=== PATIENT | female | born 1990 | race Caucasian/White ===

== ENCOUNTER → 2018-01-06 15:00 | Outpatient (CLI) | payer OTHER, SELFPAY | DX: Z23 Encounter for immunization (principal) | CPT/HCPCS: 90471; 90686 ==

== ENCOUNTER → 2018-05-04 18:49 | Outpatient (REF) | payer OTHER, SELFPAY | LOC: LAB 18:49 | PROVIDERS: Visit Provider Physician Assistant | DX: N92.6 Irregular menstruation, unspecified (principal) | CPT/HCPCS: 84702 ==

== ENCOUNTER → 2018-06-12 15:14 | Outpatient (CLI) | payer OTHER, SELFPAY ==
[2018-06-12 15:57] LABS: Add Manual Diff / Slide Review NO; Basophils Absolute Auto 0 /uL (0-100); Basophils Percent Auto 0.4 % (0-2); Eosinophils Absolute Auto 100 /uL (0-450); Eosinophils Percent Auto 0.7 % (2-4); Hematocrit 38.2 % (36-46); Hemoglobin 13.4 g/dL (12.0-16.0); Lymphocytes Absolute Auto 2600 /uL (1100-4500); Lymphocytes Percent Auto 23.8 % (25-40); Mean Corpuscular HGB Conc 35.2 % (30-36); Mean Corpuscular Hemoglobin 31.9 PG (26-34); Mean Corpuscular Volume 90.6 fL (80-100); Monocytes Absolute Auto 700 /uL (0-900); Monocytes Percent Auto 6.2 % (3-14); Neutrophils Absolute Auto 7400 /uL (1500-7000); Neutrophils Percent Auto 68.9 % (50-75); Platelet Count 234 X10^3/uL (150-400); Red Blood Cell Count 4.22 X10^6/uL (4.0-5.2); Red Cell Distribution Width 12.8 % (11.6-14.8); White Blood Cell Count 10.8 X10^3/uL (4.5-11.0)
[2018-06-12 16:08] LABS: Appearance Urine UA CLEAR; Bilirubin Urine UA NEGATIVE (NEGATIVE); Color Urine UA YELLOW; Glucose Urine UA NEGATIVE (Negative); Ketones Urine UA NEGATIVE (NEGATIVE); Leukocyte Esterase Urine UA TRACE (NEGATIVE); Nitrite Urine UA NEGATIVE (Negative); Occult Blood Urine UA NEGATIVE (Negative); Protein Urine UA NEGATIVE (Negative); Specific Gravity Urine UA <=1.005 (1.000-1.035); Urobilinogen Urine UA 0.2 E.U./dL (0.2)
[2018-06-12 16:22] LABS: Bacteria Urine Few (2-10); RBC Urine None Seen (0-5/HPF); WBC Urine None Seen (0-5/HPF)
[2018-06-12 18:07] LABS: Hepatitis B Surface Antigen NEGATIVE s/c (NEGATIVE); Rubella Antibody IgG 53.3 IU/mL (>15)
[2018-06-12 18:36] LABS: HIV 1 and 2 Antibody NEGATIVE (NEGATIVE); Hep C Virus Ab w/Reflex Quant NEGATIVE s/c (NEGATIVE)
[2018-06-15 14:30] LABS: RPR Screen Nonreactive (Nonreactive)
== END ==
PROVIDERS: PCP Obstetrics & Gynecology; Visit Provider Obstetrics & Gynecology
DX: Z34.01 Encounter for supervision of normal first pregnancy, first trimester (principal)
CPT/HCPCS: 36415; 80055; 81003; 81015; 86703; 86787; 86803; 86850; 86900; 86901; 87086

== ENCOUNTER → 2018-07-10 16:23 | Outpatient (CLI) | payer OTHER, SELFPAY ==
[2018-07-10 19:52] LABS: Urine N gonorrhoeae NOT DETECTED
[2018-07-10 20:04] LABS: Urine Chlamydia NOT DETECTED
== END ==
PROVIDERS: PCP Obstetrics & Gynecology; Visit Provider Obstetrics & Gynecology
DX: Z34.01 Encounter for supervision of normal first pregnancy, first trimester (principal); Z3A.13 13 weeks gestation of pregnancy
CPT/HCPCS: 87491; 87591

== ENCOUNTER → 2018-08-07 15:21 | Outpatient (CLI) | payer OTHER, SELFPAY ==
[2018-08-14 12:54] LABS: AFP, Serum 87.5 ng/mL; Calc Gestational Age 18.3; Cigarette Smoker N; Donated Egg NOT GIVEN; Donor Egg Age NOT GIVEN; Inhibin A, Dimeric 187 pg/mL; Maternal Weight 150 lbs; Number of Fetuses 1; Previous Pregnancy Down Syndro NOT GIVEN; hCG, MoM 2.78; hCG, Serum 64.4 IU/mL
== END ==
PROVIDERS: PCP Obstetrics & Gynecology; Visit Provider Obstetrics & Gynecology
DX: Z34.92 Encounter for supervision of normal pregnancy, unspecified, second trimester (principal); Z3A.18 18 weeks gestation of pregnancy
CPT/HCPCS: 36415; 82105; 82677; 84702; 86336

== ENCOUNTER → 2018-09-04 14:54 | Outpatient (CLI) | payer OTHER, SELFPAY ==
--- NOTE | 2018-09-04 14:55 | DI.US.S_ITS ---
PROCEDURE: US OB >= 14 WEEKS FETUS INDICATIONS: anatomic survey OUTSIDE/PRIOR DATING DATA: Last menstrual period (LMP): None. LMP-based estimated date of delivery (ABRAHAN): None. First dating scan (date and location): 06/12/18. Estimated date of delivery (ABRAHAN) from first dating scan: 01/06/19. TECHNIQUE: Real-time scanning was performed of the fetus, with image documentation and biometric measurements. Endovaginal scanning: Not performed COMPARISON: [facility], , OB >= 14 WEEKS FETUS, 08/07/2018, 16:16. FINDINGS: General: A single living intrauterine gestation is present. Presentation: Vertex Placenta: Placental position is posterior, without previa. Amniotic fluid index: 16.1 cm, normal range is 5-24 cm. heart rate: 149 beats per minute. Maternal cervical canal: 4.2 cm long. Normal lower limit is 2.5 cm. 1.2 cm cyst is seen in right ovary. Bilateral ovaries are otherwise within normal limits. biometrics: Biparietal diameter: 5.3 cm, 22 week, 2 days Head circumference: 20.3 cm, 22 weeks, 3 days Abdominal circumference: 17.9 cm, 22 weeks, 5 days Femur length: 3.5 cm, 21 week one day Estimated gestational age from initial scan: 22 weeks 2 days Composite gestational age from present scan: 22 week zero day Estimated weight and percentile: 476 g, 34% Measurement variability for biometric dating: +/- 7 days from 14 weeks to 15 weeks 6 days gestation, +/- 10 days from 16 weeks to 21 weeks 6 days gestation, +/- 2 weeks from 22 weeks to 27 weeks 6 days gestation, +/- 3 weeks for 28 weeks gestation or later. weight reference: 4500 g or EFW >90/95% is considered macrosomia or large for gestational age. EFW <10% is small for gestational age. EFW 5% or less is considered intra-uterine growth restriction. Anatomic survey: Neuro: Ventricles are non-dilated at less than 10 mm. Cisterna magna is normal at 3-11 mm. Cerebellum is normal in size and morphology. Nuchal skin fold: Normal at less than 6 mm between 14-21 weeks gestational age. Face: Nose and lips, facial profile are normal. Spine: No evidence for spina bifida. Heart: 4-chambered heart is present, with normal ventricular outflow tracts. Diaphragm: Diaphragm is intact. Stomach: Left-sided stomach is present. Kidneys: No hydronephrosis. Normal is less than 5 mm in 2nd trimester, less than 7 mm in 3rd trimester. Cord: 3-vessel cord insertion is approximately 1.6 cm from the edge of placenta. Bladder: Normal in size. Extremities: All 4 extremities identified. IMPRESSION: 1. Single live intrauterine with fetus in vertex presentation. heart rate is 149 beats per minute. Normal growth. Normal amount of amniotic fluid. 2. Placental cord insertion is 1.6 cm from the edge of placenta, suggest followup ultrasound. 3. Rest of anatomic survey is within normal limits. Dictated by: Ramana Loaiza M.D. on 09/04/2018 at 16:28 Approved by: Ramana Loaiza M.D. on 09/04/2018 at 16:32
== END ==
PROVIDERS: PCP Obstetrics & Gynecology; Visit Provider Obstetrics & Gynecology
DX: Z34.02 Encounter for supervision of normal first pregnancy, second trimester (principal); Z3A.22 22 weeks gestation of pregnancy
CPT/HCPCS: 76811

== ENCOUNTER → 2018-09-21 09:05 | Outpatient (CLI) | payer OTHER, SELFPAY ==
[2018-09-21 10:57] LABS: Hematocrit 35.1 % (36-46); Hemoglobin 12.5 g/dL (12.0-16.0)
[2018-09-21 11:28] LABS: GTT (PREG) 1 Hour PP 50gm Dose 96 mg/dL (76-139)
== END ==
PROVIDERS: PCP Obstetrics & Gynecology; Visit Provider Obstetrics & Gynecology
DX: Z34.02 Encounter for supervision of normal first pregnancy, second trimester (principal)
CPT/HCPCS: 36415; 82950; 85014; 85018; 86850

== ENCOUNTER → 2018-12-03 14:32 | Outpatient (CLI) | payer OTHER, SELFPAY ==
[2018-12-04 16:27] LABS: Strep Grp B PCR NEG for Grp B Strep
== END ==
PROVIDERS: PCP Family Medicine; Visit Provider Obstetrics & Gynecology
DX: Z34.03 Encounter for supervision of normal first pregnancy, third trimester (principal); Z3A.35 35 weeks gestation of pregnancy
CPT/HCPCS: 87653

== ENCOUNTER → 2018-12-08 09:01 | Outpatient (CLI) | payer OTHER, SELFPAY | PROVIDERS: PCP Family Medicine | DX: Z23 Encounter for immunization (principal) | CPT/HCPCS: 90471; 90686 ==

== ENCOUNTER 2018-12-15 15:19 | Outpatient (CLI) | payer OTHER, SELFPAY | END 2018-12-15 16:50 | disposition home or self-care (01) | LOC: OB 12-17 09:07 | PROVIDERS: PCP Family Medicine; Visit Provider Obstetrics & Gynecology | DX: O47.03 False labor before 37 completed weeks of gestation, third trimester (principal); Z3A.35 35 weeks gestation of pregnancy | CPT/HCPCS: 59025; 59050; G0378; G0379 ==

== ENCOUNTER 2018-12-28 09:39 | Inpatient (IN) | payer OTHER, SELFPAY ==
[2018-12-28 10:21] VITALS: BP 120/62
--- NOTE | 2018-12-28 11:56 | PM.PREOP ---
Pre-operative Note Interval Note History & Physical reviewed/Exam performed by Physician: Yes Changes to H&P: No
[2018-12-28] MEDS: CEFAZOLIN 2 GM/100 ML FROZ.PIGGY IV (12:35)
[2018-12-28 12:44] LABS: Add Manual Diff / Slide Review NO; Basophils Absolute Auto 0 /uL (0-100); Basophils Percent Auto 0.3 % (0-2); Eosinophils Absolute Auto 0 /uL (0-450); Eosinophils Percent Auto 0.3 % (2-4); Lymphocytes Absolute Auto 1500 /uL (1100-4500); Lymphocytes Percent Auto 13.4 % (25-40); Mean Corpuscular Volume 94.3 fL (80-100); Monocytes Absolute Auto 900 /uL (0-900); Monocytes Percent Auto 7.9 % (3-14); Neutrophils Absolute Auto 8400 /uL (1500-7000); Neutrophils Percent Auto 78.1 % (50-75); Platelet Count 150 X10^3/uL (150-400); Red Blood Cell Count 3.92 X10^6/uL (4.0-5.2); Red Cell Distribution Width 13.4 % (11.6-14.8); White Blood Cell Count 10.8 X10^3/uL (4.5-11.0)
[2018-12-28] MEDS: ACETAMINOPHEN IV 1,000 MG/100 ML VIAL 400 MG IV (13:10)
--- NOTE | 2018-12-28 13:21 | SUR.OPER ---
Supine on Padded OR bed, head on pillow, safety belt at thigh, arms secured on padded arm boards at <90 degrees abduction. Bump under right buttock. Legs uncrossed with pillow under knees, gel pad to heels, tape over blanket to lower legs.
--- NOTE | 2018-12-28 13:21 | SUR.OPER ---
Viable female delivered at 1306. Cord blood and placenta sent with L&D nurse.
[2018-12-28 13:47] VITALS: BP 105/60; PULSE 80; RESP 17; TEMP 36.5; O2SAT 98
[2018-12-28 13:52] VITALS: BP 109/59; PULSE 80; RESP 20; O2SAT 97
[2018-12-28 13:58] VITALS: BP 105/64; PULSE 76; RESP 12; O2SAT 97
[2018-12-28 14:08] VITALS: BP 99/57; PULSE 72; RESP 18; TEMP 36.3; O2SAT 97
--- NOTE | 2018-12-28 14:22 | SUR.PHASEI ---
1349 to room 4. bed remains elevated as nurses are caring for the patient. call light within reach. Spouse and baby are in the room. dressing remains CDI; RNs are placing new lauren-pad. No questions.
--- NOTE | 2018-12-28 14:24 | SUR.PHASEI ---
1 liter of IV fluid infused, disconnected prior to transfer.
[2018-12-28] MEDS: LACTATED RINGERS 1,000 ML 100 ML IV (14:30)
[2018-12-28] MEDS: ONDANSETRON 4 MG/2 ML INJ IV (15:34)
[2018-12-28] MEDS: KETOROLAC 30 MG/ML VIAL IV (19:23)
[2018-12-28] MEDS: LANOLIN OINT 7 GM 1 APPLIC TOP (22:46)
[2018-12-29] MEDS: KETOROLAC 30 MG/ML VIAL IV ×2 (01:30→07:19)
[2018-12-29] MEDS: diphenhydrAMINE 25 MG TABLET PO (04:11)
[2018-12-29 06:30] LABS: Hematocrit 29.3 % (36-46); Hemoglobin 10.6 g/dL (12.0-16.0)
[2018-12-29] MEDS: PRENATAL VIT,CALC/IRON/FOLIC 1 TABLET 1 TAB PO (07:19)
[2018-12-29] MEDS: DOCUSATE 250 MG CAPSULE PO (07:20)
--- NOTE | 2018-12-29 10:36 | PM.GYNOP.1 ---
Operative Date/Time/Diagnoses Date of procedure: 12/28/18 Time of procedure: 13:45 Pre-op diagnosis: Persistent breech presentation 39 weeks gestation Post-op diagnosis: same Procedure & Clinicians Procedure: Procedures Operation Date: 12/28/18 11:45 Actual Procedures Side Surgeon p Section Sheri Lutz MD Indications: Persistent breech presentation 39 weeks gestation Surgeon: Sheri Lutz Property Preservation Specialist: Sharon Kamara Anesthesia Type: Spinal Operative Notes Findings: Live female in the complete breech presentation Normal uterus, tubes, and ovaries Closure Type: primary Specimen(s): other (Cord bloods, placenta) Applied: catheter Estimated blood loss (mL): 600 Blood products transfused: none Procedure in detail: The patient was taken to the operating room where she was placed in the seated position. Spinal anesthesia was administered. She was then placed in the dorsal supine position with a leftward tilt. She was prepped and draped in the usual sterile fashion. A timeout was performed. After spinal analgesia was found to be adequate, a Pfannenstiel skin incision was made 2 fingerbreadths above the pubic symphysis and carried through to the underlying layer fascia. The fascia was nicked in the midline, and the incision extended bilaterally with the Martinez scissors. The superior aspect of the fascial incision was grasped with a Loc clamps, elevated, and the underlying rectus muscles dissected off sharply and bluntly. Attention was then turned to the inferior aspect of this incision which in a similar fashion was grasped with a [place] clamps, elevated, and the underlying rectus muscles dissected off sharply and bluntly. The rectus muscles were in the midline. The peritoneum was identified, grasped between 2 hemostats, and entered sharply with the Metzenbaum scissors. This incision was extended superiorly and inferiorly with good visualization of the bladder. The bladder blade was inserted. The vesicouterine peritoneum was identified, grasped with the pickup, and entered sharply with the Metzenbaum scissors. This incision was extended bilaterally, and the bladder flap was created digitally. The bladder blade was reinserted. The lower uterine segment was incised in a transverse fashion with the scalpel. Upon entering the amniotic sac there was a large amount of clear amniotic fluid. The infant was delivered by total breech extraction. The nose and mouth were suctioned with bulb suction. The cord was double clamped and cut. The was handed off to waiting RN and RT. The placenta was delivered manually. The uterus was cleared of all clots and debris. The uterine incision was repaired with #1 chromic in a running interlocking fashion, and a second layer the same suture was used for an imbricating layer. Hemostasis was achieved. The tubes and ovaries were examined and were found to be normal. The gutters were cleared of all clots and debris. The bladder flap was reapproximated using 2-0 Vicryl in a running fashion. The parietal peritoneum was closed using 2-0 Vicryl in a running fashion. The fascia was reapproximated using 0 Vicryl in a running fashion. Subcutaneous layer was copiously irrigated with warm normal saline. Five simple interrupted sutures of 3-0 Vicryl were placed to reapproximate the subcutaneous layer. The skin was closed with 4-0 Biosyn in a subcuticular fashion. Steri-Strips were placed. An Aquacel dressing was placed. The uterus was expressed of a small amount of old blood. Sponge, lap, and instrument counts were correct ?-2. The patient tolerated the procedure well, and was taken to PACU in stable condition. Complications: none Post-operative Condition: stable Disposition: PACU Plan for aftercare: To the Center after recovery
[2018-12-29] MEDS: ACETAMINOPHEN 325 MG TABLET 650 MG PO ×3 (11:38→22:57)
[2018-12-29] MEDS: IBUPROFEN 600 MG TABLET PO ×2 (13:26→19:21)
[2018-12-29 15:00] VITALS: BP 104/60; PULSE 66; RESP 16; TEMP 36.2
[2018-12-29] MEDS: RHO(D) IMMUNE GLOBULIN 1,500 UNIT SYRINGE 1500 UNIT IM (16:05)
[2018-12-30] MEDS: IBUPROFEN 600 MG TABLET PO ×3 (00:55→14:17)
[2018-12-30] MEDS: ACETAMINOPHEN 325 MG TABLET 650 MG PO ×2 (05:12→11:21)
[2018-12-30] MEDS: DOCUSATE 250 MG CAPSULE PO (09:31)
[2018-12-30] MEDS: PRENATAL VIT,CALC/IRON/FOLIC 1 TABLET 1 TAB PO (09:31)
--- NOTE | 2019-01-05 18:15 | PM.OBDS.1 ---
Discharge Providers Provider Date of admission: 12/28/18 09:39 Discharge Date: 12/30/18 Primary care physician: Orion Elizabeth MD Consults: 12/28/18 14:11 Consult to Advanced Registered Nurse Routine Comment: Discharge provider: Sheri Lutz MD Summary Hospital Course Date Patient Seen: 12/30/18 Time Patient Seen: 10:30 Procedures: Primary low-transverse section Spinal analgesia Hospital Course: Patient is a 28-year-old 1 para 1 who presented on December 28, 2018 for a scheduled primary low-transverse section secondary to persistent breech presentation. She underwent this procedure without complication. Her postoperative course was unremarkable and she was discharged home on postop day # 2. She was tolerating a diet, voiding without the catheter, controlling pain with oral medications, and ambulating independently. Peripartum Data Delivery Method: Section Laceration description: None Episiotomy description: None Procedures: Primary low-transverse section Spinal analgesia complications: none Status at Discharge Cognitive/behavioral status at discharge: oriented Functional status at discharge: independent ambulation Overall status at discharge: patient is progressing back to baseline Time Spent with Patient Time attestation: Total time spent providing and/or coordinating discharge services: Time spent: Less than 30 minutes Objective Labs Result Diagrams: 12/29/18 06:10 Exam Vital Signs (past 8 hours): Oxygen Delivery Method Room Air Generally: Patient is sitting up in bed, no acute distress Lungs: Clear to auscultation bilaterally Cardiovascular: Regular rate and rhythm Fundus: Firm at U -2 Incision: Clean dry and intact with Aquacel dressing Extremities: Trace edema, negative Homans Discharge Plan Discharge Plan Patient Disposition: Home Discharge comment: Call with fever, chills, redness or drainage around the incision, or bleeding vaginally more than a pad in an hour Ibuprofen 600-800 mg every 6 hr Discharge Med Rec/Prescriptions Prescriptions: Continued (DME) Double Electric breast Pump and Supplies See Rx Instructions .ROUTE .MEDSUPPLY Qty: 1 RF: 0 prenat.vits,shane,ari-kjww-yesvx tablet 1 tab PO DAILY RF: 0 cholecalciferol (vitamin D3) 3,000 unit tablet 3,000 unit PO DAILY RF: 0 acetaminophen [Tylenol Extra Strength] 500 mg tablet 1,000 mg PO Q6H PRN (Reason: headache) RF: 0 Discontinued dextroamphetamine-amphetamine [Adderall] 5 MG tablet Qty: 0 RF: 0 ondansetron HCl (PF) 4 MG/2 ML solution 4 mg IV Q6HP PRNQty: 20 RF: 0 Follow up/Referrals: Sheri Lutz MD [Physician] - 1 Week (please follow up w/ Dr. Lutz on Friday, @ 3:15pm for aquacell removal.) Provider Discharge Instructions Diet: Regular Skin/Wound/Dressing Care Report to your healthcare provider any signs of infection, such as:: chills, fever, increased pain, unusual drainage and unusual redness Dressing: Do not remove Visit Report/Discharge Packet Instructions: DI for Stand Alone Forms: Discharge: Care Discharge Data Primary Care Provider: Orion Elizabeth Discharges patient from system. Discharge Date/Time: 12/30/18 15:55
== END 2018-12-30 15:55 | disposition home or self-care (01) | DRG 788 ==
PROVIDERS: Admitting Provider Obstetrics & Gynecology; PCP Family Medicine; Visit Provider Obstetrics & Gynecology
PROC: 10D00Z1 Extraction of Products of Conception, Low, Open Approach (ICD-10-PCS; CPT 59514; principal; 2018-12-28 11:45)
DX: O32.1XX0 Maternal care for breech presentation, not applicable or unspecified (principal); Z3A.39 39 weeks gestation of pregnancy; Z37.0 Single live birth
CPT/HCPCS: 36415; 59050; 59510; 59514; 85014; 85018; 85025; 85461; 86850; 86900; 86901; J0131; J0690; J1885; J2274; J2405; J2590; J2790

== ENCOUNTER → 2019-09-28 16:50 | Outpatient (CLI) | payer OTHER, SELFPAY ==
[2019-09-29 08:24] LABS: COVID19 Sendout Not Detected (Not Detect)
== END ==
PROVIDERS: PCP Family Medicine; Visit Provider Physician Assistant
DX: Z03.818 Encounter for observation for suspected exposure to other biological agents ruled out (principal)
CPT/HCPCS: 87635

== ENCOUNTER → 2019-12-17 12:12 | Outpatient (CLI) | payer OTHER, SELFPAY | PROVIDERS: PCP Family Medicine; Referring Provider Internal Medicine; Visit Provider Internal Medicine | DX: Z23 Encounter for immunization (principal) | CPT/HCPCS: 90471; 90686 ==

== ENCOUNTER → 2019-12-30 07:53 | Outpatient (CLI) | payer OTHER, SELFPAY ==
[2019-12-30 09:15] LABS: COVID19 -Nasal RAPID Negative (Negative)
== END ==
PROVIDERS: PCP Family Medicine; Visit Provider Family Medicine
DX: Z11.59 Encounter for screening for other viral diseases (principal)
CPT/HCPCS: 87635

== ENCOUNTER → 2020-05-03 10:29 | Outpatient (CLI) | payer OTHER, SELFPAY ==
[2020-05-03 11:46] LABS: COVID19 -Nasal RAPID Negative (Negative)
== END ==
PROVIDERS: PCP Family Medicine; Visit Provider Student in an Organized Health Care Education/Training Program
DX: Z20.822 Contact with and (suspected) exposure to COVID-19 (principal)
CPT/HCPCS: 87635

== ENCOUNTER → 2020-08-11 12:23 | Outpatient (CLI) | payer OTHER, SELFPAY ==
[2020-08-11 16:05] LABS: Rubella Antibody IgG 41.1 IU/mL (>15)
[2020-08-12 08:14] LABS: Rubeola Measles IgG 18.3 AU/mL (Immune >16.4); Varicella IgG Antibody 681 index (Immune >165)
[2020-08-12 12:42] LABS: Hepatitis B Surf Ab Qualitativ Reactive (.)
[2020-08-15 22:37] LABS: QuantiFERON Mitogen Value >10.00 IU/mL (.); QuantiFERON TB Gold Plus Negative (Negative); QuantiFERON TB2 Ag Value <0.00 IU/mL (.)
== END ==
PROVIDERS: PCP Family Medicine; Referring Provider Student in an Organized Health Care Education/Training Program; Visit Provider Student in an Organized Health Care Education/Training Program
DX: Z02.1 Encounter for pre-employment examination (principal)
CPT/HCPCS: 36415; 86480; 86706; 86735; 86762; 86765; 86787

== ENCOUNTER 2020-09-10 11:44 | Emergency (ER) | payer OTHER, SELFPAY ==
[2020-09-10 12:30] VITALS: BP 130/76; PULSE 89; RESP 16; TEMP 37.2; O2SAT 100; BMI 20.7
[2020-09-10 12:57] LABS: COVID19 -Nasal RAPID Negative (Negative)
--- NOTE | 2020-09-10 13:26 | ED.URI ---
HPI - URI/Sore Throat General Chief Complaint: Upper Respiratory Symptoms Stated Complaint: Sore Throat, Dry Cough, Runny Nose Time Seen by Provider: 09/10/20 13:26 Source: patient Mode of arrival: Ambulatory Limitations: no limitations History of Present Illness HPI Narrative: this is a 30-year-old female comes to the emergency department for runny nose, dry cough sore throat mild generalized headache. Patient has been afebrile. She denies any chest pain shortness of breath. No nausea vomiting. No other GI urinary symptoms. Patient states she is healthy with no medical issues. Patient states that her [id number] child has had similar symptoms. They are also in daycare have another individual's sick as well. Patient came today because she requires negative covid testing for work. Related Data Home Medications Medication Instructions Recorded Confirmed prenat.vits,shane,oqc-nxiy-tmbok 1 tab PO DAILY 06/12/18 12/28/18 Previous Rx's Medication Instructions Recorded Double Electric breast Pump and #1 each 11/30/18 Supplies norethindrone (contraceptive) 0.35 See Rx Instructions .ROUTE 02/02/20 mg tablet .COMPLEX #28 tab Allergies Allergy/AdvReac Type Severity Reaction Status Date / Time No Known Allergies Allergy Uncoded 09/28/19 16:58 Review of Systems Review of Systems ROS Unobtainable: All systems reviewed & are unremarkable except as noted in HPI and below Patient History Medical History ADHD Hemorrhoids Vitiligo Surgical History History of appendectomy S/P primary low transverse [place] teeth removed Family History Father Diabetes mellitus Mother Cancer Sister Healthy adult Grandfather Healthy adult Grandmother Healthy adult Grandfather Diabetes mellitus Hyperlipidemia Heart disease Myocardial infarction Grandmother Alzheimer disease Hypertension Social History marital status: number of children: 1 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 HEENT: Atraumatic, pupils are equal round reactive to light, extraocular movements are intact, nares are clear, Throat is clear except for mild cobblestoning without any exudates, erythema, tonsillar enlargement or uvular deviation HEART: Regular rate and rhythm without murmur, clicks, rubs. LUNGS:Lungs clear to auscultation, no wheezes, rales, crackles, chest moves symmetrically ABD:bowel sounds normal, soft, non-tender, no guarding, rebound, rigidity, no masses noted, no hepatosplenomegaly MSCL: full range of motion, normal gait NEURO:CN 2-12 intact, normal gait. SKIN: no rash Initial Vital Signs Initial Vital Signs: Vital Signs Temperature 98.9 F 09/10/20 12:30 Pulse Rate 89 09/10/20 12:30 Respiratory Rate 16 09/10/20 12:30 Blood Pressure 130/76 09/10/20 12:30 Pulse Oximetry 100 09/10/20 12:30 Course Orders Ordered: ED Orders 09/10/20 12:30 COVID19 -Nasal swab/Pre-Proc Stat Vital Signs Vital signs: Vital Signs - 8 hr 09/10/20 12:30 Temperature 98.9 F Pulse Rate 89 Respiratory Rate 16 Blood Pressure 130/76 Pulse Oximetry 100 MDM - URI/Sore Throat Lab Data Attestation: I reviewed the patient's lab results. Labs: Lab Results 09/10/20 Range/Units 12:30 SARS-CoV-2 (PCR) Negative (Negative) Discharge Plan Departure Patient Disposition: Home Clinical Impression: Upper respiratory infection Instructions: DI for Viral Upper Respiratory Infection -- Adult Activity Restrictions/Additional Instructions: Follow-up with your physician in the next 7-10 days if you are not having any improvement. Your covid test is negative. Please return for persistent fevers the door spine to Tylenol ibuprofen, severe headaches, new chest pain, shortness of breath, passing out, persistent vomiting, muffled voice, difficulty swallowing or other new or concerning symptoms. Prescriptions: No Action (DME) Double Electric breast Pump and Supplies See Rx Instructions .ROUTE .MEDSUPPLY Qty: 1 RF: 0 norethindrone (contraceptive) 0.35 mg tablet See Rx Instructions .ROUTE .COMPLEX Qty: 28 RF: 10 prenat.vits,shane,bxx-klkz-pthni tablet 1 tab PO DAILY RF: 0 Referrals: Sharon Kamara DO [Primary Care Provider] -
== END 2020-09-10 14:32 | disposition home or self-care (01) ==
PROVIDERS: Emergency Provider Emergency Medicine; PCP Family Medicine
DX: J06.9 Acute upper respiratory infection, unspecified (principal); Z20.822 Contact with and (suspected) exposure to COVID-19
CPT/HCPCS: 87635; 99281; 99282; C9803

== ENCOUNTER → 2021-11-08 16:31 | Outpatient (CLI) | payer OTHER, SELFPAY ==
[2021-11-08 17:20] LABS: Appearance Urine UA CLEAR; Bilirubin Urine UA NEGATIVE (NEGATIVE); Color Urine UA YELLOW; Glucose Urine UA NEGATIVE (Negative); Ketones Urine UA NEGATIVE (NEGATIVE); Leukocyte Esterase Urine UA NEGATIVE (NEGATIVE); Nitrite Urine UA NEGATIVE (Negative); Occult Blood Urine UA NEGATIVE (Negative); Protein Urine UA NEGATIVE (Negative); Specific Gravity Urine UA >=1.030 (1.000-1.035); Urobilinogen Urine UA 0.2 E.U./dL (0.2)
[2021-11-08 17:35] LABS: Add Manual Diff / Slide Review NO; Basophils Absolute Auto 100 /uL (0-100); Basophils Percent Auto 0.6 % (0-2); Eosinophils Absolute Auto 100 /uL (0-450); Hematocrit 37.1 % (36-46); Hemoglobin 13.2 g/dL (12.0-16.0); Lymphocytes Absolute Auto 2800 /uL (1100-4500); Lymphocytes Percent Auto 28.8 % (25-40); Mean Corpuscular HGB Conc 35.6 % (30-36); Mean Corpuscular Hemoglobin 31.6 PG (26-34); Mean Corpuscular Volume 88.6 fL (80-100); Monocytes Absolute Auto 700 /uL (0-900); Monocytes Percent Auto 7.2 % (3-14); Neutrophils Absolute Auto 6100 /uL (1500-7000); Neutrophils Percent Auto 62.4 % (50-75); Platelet Count 225 X10^3/uL (150-400); Red Blood Cell Count 4.19 X10^6/uL (4.0-5.2); Red Cell Distribution Width 13.5 % (11.6-14.8); White Blood Cell Count 9.8 X10^3/uL (4.5-11.0)
[2021-11-08 18:29] LABS: Hepatitis B Surface Antigen NEGATIVE s/c (NEGATIVE); Rubella Antibody IgG 35.9 IU/mL (>15)
[2021-11-08 18:44] LABS: HIV 1 & 2 Ab/Ag 4th Gen Combo NEGATIVE (NEGATIVE); Hep C Virus Ab w/Reflex Quant NEGATIVE s/c (NEGATIVE)
[2021-11-09 08:20] LABS: RPR Screen Non Reactive (Non Reactive); Varicella IgG Antibody 643 index (Immune >165)
== END ==
PROVIDERS: PCP Family Medicine; Referring Provider Obstetrics & Gynecology; Visit Provider Obstetrics & Gynecology
DX: Z34.81 Encounter for supervision of other normal pregnancy, first trimester (principal)
CPT/HCPCS: 36415; 80055; 81003; 86787; 86803; 86850; 86870; 86900; 86901; 87086; 87389

== ENCOUNTER → 2021-12-24 13:29 | Outpatient (CLI) | payer OTHER, SELFPAY ==
[2021-12-26 19:49] LABS: AFP Value 50.1 ng/mL (.); Gest Age on Col Date 16.7 weeks (.); Insulin Dep Diabetes No (.); OSBR Risk 1IN 4034 (.); Results Report (.); Test Results *Screen Negative* (.)
== END ==
PROVIDERS: PCP Family Medicine; Referring Provider Physician Assistant Medical; Visit Provider Physician Assistant Medical
DX: Z34.82 Encounter for supervision of other normal pregnancy, second trimester (principal); Z3A.16 16 weeks gestation of pregnancy
CPT/HCPCS: 36415; 82105

== ENCOUNTER → 2022-01-25 14:13 | Outpatient (CLI) | payer OTHER, SELFPAY ==
--- NOTE | 2022-01-25 14:14 | DI.US.S_ITS ---
PROCEDURE: US OB >= 14 WEEKS FETUS INDICATIONS: ANATOMY OUTSIDE/PRIOR DATING DATA: Last menstrual period (LMP): 09/03/2021. LMP-based estimated date of delivery (ABRAHAN): 06/10/2022. First dating scan (date and location): 11/01/2021. Estimated date of delivery (ABRAHAN) from first dating scan: 06/03/2022. The calculations are made using the working ABRAHAN of 06/10/2022. TECHNIQUE: Real-time scanning was performed of the fetus, with image documentation and biometric measurements. COMPARISON: [facility], , OB <= 14 WEEKS FETUS, 11/01/2021, 16:50. [facility], , OB <= 14 WEEKS FETUS, 11/26/2021, 17:10. FINDINGS: General: A single living intrauterine gestation is present. Presentation: Variable. Placenta: Placental position is anterior , without previa. Amniotic fluid index: 20.1 cm, normal range is 5-24 cm. Single deepest vertical pocket is 6.1 cm. heart rate: 141 beats per minute. Maternal cervical canal: 5.7 cm long. Normal lower limit is 2.5 cm. Miscellaneous: Multiple punctate echogenic foci suggestive of the debris are demonstrated within the urinary bladder. biometrics: Biparietal diameter: 5.2 cm, 21 weeks 6 days Head circumference: 19.0 cm, 21 weeks 2 days Abdominal circumference: 18.5 cm, 23 weeks 2 days Femur length: 3.7 cm, 21 weeks 4 days Clinically estimated gestational age: 20 weeks 4 days Composite gestational age from present scan: 22 weeks 0 days Estimated weight and percentile: 501 g, greater than 99th percentile Anatomic survey: Neuro: Ventricles are non-dilated at less than 10 mm. Cisterna magna is normal at 3-11 mm. Cerebellum is normal in size and morphology. Nuchal skin fold: Normal at less than 6 mm between 14-21 weeks gestational age. Face: Nose and lips, facial profile are normal. Spine: No evidence for spina bifida. Along the right aspect of the sacrum and iliac wing, there is a possible subcutaneous fluid collection measuring approximately 2.3 x 1.7 x 0.5 cm. Heart: 4-chambered heart is present, with normal ventricular outflow tracts. Diaphragm: Diaphragm is intact. Stomach: Left-sided stomach is present. Kidneys: No hydronephrosis. Normal is less than 5 mm in 2nd trimester, less than 7 mm in 3rd trimester. Cord: 3-vessel cord has orthotopic insertion. Bladder: Normal in size. Extremities: All 4 extremities identified. IMPRESSION: 1. Single living intrauterine demonstrating interval growth with estimated weight at greater than 99th percentile. The findings are nonspecific and may be constitutional or reflect inaccurate dates but the differential includes macrosomia. Recommend attention on follow-up. 2. Possible subcutaneous fluid collection along the right sacrum and iliac wing, but the differential includes artifact. Recommend attention on follow-up. We strive to produce accurate, complete, and clear reports of imaging services. To assist us in improving patient care, this report was composed using standard report templates and voice recognition software. Therefore, it may contain abnormal punctuation, insertions and/or omissions. Occasional wrong-word or sound-alike substitutions may occur. Though we review the report and make efforts to correct it, we do recommend that the report be read carefully in proper context to recognize any text inaccuracies. Dictated by: Nabil Cervantes M.D. on 01/26/2022 at 1:21 Approved by: Nabil Cervantes M.D. on 01/26/2022 at 1:29
== END ==
PROVIDERS: PCP Family Medicine; Referring Provider Obstetrics & Gynecology; Visit Provider Obstetrics & Gynecology
DX: Z34.82 Encounter for supervision of other normal pregnancy, second trimester (principal); Z3A.22 22 weeks gestation of pregnancy
CPT/HCPCS: 76811

== ENCOUNTER → 2022-02-19 06:42 | Outpatient (CLI) | payer OTHER, SELFPAY ==
--- NOTE | 2022-02-19 06:43 | DI.US.S_ITS ---
PROCEDURE: US OB FOLLOW UP INDICATIONS: SUBCUTANEOUS FLUID RIGHT OF SACRAL SPINE AND GROWTH OUTSIDE/PRIOR DATING DATA: Last menstrual period (LMP): 09/03/2021. LMP-based estimated date of delivery (ABRAHAN): 06/10/2022. First dating scan (date and location): 11/01/2021. Estimated date of delivery (ABRAHAN) from first dating scan: 06/03/2022. The calculations are made using the working ABRAHAN of 06/10/22. TECHNIQUE: Real-time scanning was performed of the fetus, with image documentation and biometric measurements. Endovaginal scanning: Not performed COMPARISON: [facility], , OB >= 14 WEEKS FETUS, 01/25/2022, 14:19. [facility], , OB <= 14 WEEKS FETUS, 11/26/2021, 17:10. [facility], , OB <= 14 WEEKS FETUS, 11/01/2021, 16:50. FINDINGS: General: A single living intrauterine gestation is present. Presentation: There pole. Placenta: Placental position is anterior , without previa. Amniotic fluid index: 24.5 cm, normal range is 5-24 cm. Single deepest vertical pocket is 6.8 cm. heart rate: 152 beats per minute. Maternal cervical canal: 3.2 cm long. Normal lower limit is 2.5 cm. biometrics: Biparietal diameter: 25 weeks 5 days Head circumference: 25 weeks 3 days Abdominal circumference: 26 weeks 2 days Femur length: 25 weeks 4 days Clinically estimated gestational age: 24 weeks 1 day Composite gestational age from present scan: 25 weeks 5 days Estimated weight and percentile: 864 g; 98%. Other: Visualization of the sacral area is limited due to lie. IMPRESSION: 1. A single living intrauterine gestation redemonstrated. 2. weight is at the 98th percentile, concerning for macrosomia. 3. Mildly elevated EZEQUIEL at 24.5 cm (normal 5-24 cm). 4. Visualization of sacral area is limited due to lie. We strive to produce accurate, complete, and clear reports of imaging services. To assist us in improving patient care, this report was composed using standard report templates and voice recognition software. Therefore, it may contain abnormal punctuation, insertions and/or omissions. Occasional wrong-word or sound-alike substitutions may occur. Though we review the report and make efforts to correct it, we do recommend that the report be read carefully in proper context to recognize any text inaccuracies. Dictated by: Brenda Wade M.D. on 02/19/2022 at 10:35 Approved by: Brenda Wade M.D. on 02/19/2022 at 10:59
[2022-02-19 09:53] LABS: Hematocrit 35.2 % (36-46); Hemoglobin 12.4 g/dL (12.0-16.0)
[2022-02-19 10:14] LABS: GTT (PREG) 1 Hour PP 50gm Dose 99 mg/dL (76-139)
== END ==
PROVIDERS: PCP Family Medicine; Referring Provider Obstetrics & Gynecology; Visit Provider Obstetrics & Gynecology
DX: Z36.2 Encounter for other antenatal screening follow-up (principal); O26.892 Other specified pregnancy related conditions, second trimester; Z67.91 Unspecified blood type, Rh negative; Z3A.25 25 weeks gestation of pregnancy
CPT/HCPCS: 36415; 76816; 82950; 85014; 85018; 86850

== ENCOUNTER 2022-05-13 06:27 | Outpatient (CLI) | payer OTHER, SELFPAY | END 2022-05-13 08:30 | disposition home or self-care (01) | LOC: OB 05-15 06:58 | PROVIDERS: PCP Family Medicine; Referring Provider Obstetrics & Gynecology; Visit Provider Obstetrics & Gynecology | DX: O60.03 Preterm labor without delivery, third trimester (principal); Z3A.36 36 weeks gestation of pregnancy | CPT/HCPCS: 59025; 59050; G0378; G0379 ==

== ENCOUNTER → 2022-05-15 15:42 | Outpatient (CLI) | payer OTHER, SELFPAY ==
[2022-05-16 16:08] LABS: Strep Grp B PCR NEG for Grp B Strep
== END ==
PROVIDERS: PCP Family Medicine; Visit Provider Obstetrics & Gynecology
DX: Z34.83 Encounter for supervision of other normal pregnancy, third trimester (principal); Z3A.36 36 weeks gestation of pregnancy
CPT/HCPCS: 87653

== ENCOUNTER 2022-05-23 19:38 | Outpatient (CLI) | payer OTHER, SELFPAY ==
--- NOTE | 2022-05-23 19:51 | PM.OBTRLD ---
Visit Information Visit Information Date of evaluation: 05/23/22 Primary OB Provider: Sheri Lutz On-call OB Provider: Lashawn Mcmahon Reason for Evaluation: Yes non-stress test Comments/Additional reasons for admission: Sosa has been vomiting x 6 hours and can't keep food of fluid in her system.Her daughter had a stomach virus last week, and she thinks that's what she has. Denies painful contractions but having Alcorn-Syed contractions continuously. Took 4 mg ondansetron ODT approx 1730. Denies diarrhea today but had yesterday and the day before. Not interested in caring for herself and staying home at this time; wants IV hydration. Her is out of town for the weekend and she does not want to go into labor before he gets home. Her repeat is scheduled for 05/27/22. Vital Signs Vital Signs: Temp: 37.1 BP 111/66 HR: 108 bpm RR: 18 bpm [facility] Medical History ADHD Hemorrhoids Pre-employment health screening examination Vitiligo Surgical History History of appendectomy S/P primary low transverse [place] teeth removed Family History Father Diabetes mellitus Mother Cancer Sister Healthy adult Grandfather Hx of CABG Grandmother Hypertension Grandfather Diabetes mellitus Hyperlipidemia Heart disease Myocardial infarction Grandmother Alzheimer disease Hypertension Social History marital status: number of children: 1 household members: spouse and children lives independently: Yes housing: house pets and animals: Yes (1 dog, aware of toxo) education level: master's degree 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[employer]) current occupational exposures/hazards: Yes (infection risk) special kishore needs: No travel history: recent (domestic only) seatbelt use: always water heater temp set < 120 deg: Yes working smoke detector in home: Yes fire extinguisher in home: Yes carbon monox detector in home: Yes firearms in home: Yes firearms unloaded and locked: Yes do you feel safe at home: Yes Smoking Status: Never smoker second hand exposure: No alcohol intake: former (Rare, not while ) substance use type: does not use during the past year weight has: remained stable well-balanced diet: daily or most days daily servings fruits/ve-4 caffeine: No Type(s) of exercise: bicycling (stationary bike) frequency: 1-2 times per week Review of Systems Review of Systems Narrative: ROS negative except as mentioned in HPI. Exam Vital Signs (past 8 hours): see above Const General: healthy appearing, comfortable, well developed and well groomed Nutritional Appearance: well nourished, thin and other Orientation: oriented x3 Other: term Resp Effort & Inspection: normal respiratory effort and able to speak in complete sentences Other: Uterus soft to palpation Skin General: no rashes or lesions noted Neuro General: gait normal and moves all extremities Cognition: normal cognition Speech: speech normal Gait: normal gait Motor: muscle tone normal throughout Extrem General: normal to inspection and full ROM Psych Mental Status: mental status grossly normal Evaluation Evaluation Baseline heart rate: 135 Variability: Moderate (11-25) monitor accelerations: Present Monitor Decelerations: Absent Uterine Contraction Intensity: Mild Category of Tracing: Reactive Diagnosis, Plan/Disposition Final Diagnosis (1) Previous section complicating : Status: Acute Problem details: RCS scheduled for 05/27/22 (2) Encounter for supervision of low-risk in third trimester: Status: Acute (3) Acute dehydration: Status: Acute Problem details: IV hydration (4) Vomiting affecting : Status: Acute Problem details: Zofran Plan/Disposition Plan: Triage visit for IV hydration secondary to vomiting Zofran given IV NST Discharge home
[2022-05-23] MEDS: LACTATED RINGERS 1,000 ML 1000 ML IV (20:00)
[2022-05-23] MEDS: ONDANSETRON 8 MG in SODIUM CHLORIDE 0.9% 50 ML 216 MG IV (20:19)
== END 2022-05-23 21:25 | disposition home or self-care (01) ==
LOC: OB 05-27 08:22
PROVIDERS: PCP Family Medicine; Referring Provider Obstetrics & Gynecology; Visit Provider Obstetrics & Gynecology
DX: O21.9 Vomiting of pregnancy, unspecified (principal); O26.893 Other specified pregnancy related conditions, third trimester; E86.0 Dehydration; O34.219 Maternal care for unspecified type scar from previous cesarean delivery; Z3A.38 38 weeks gestation of pregnancy
CPT/HCPCS: 59025; 96360; G0378; G0379; J2405

== ENCOUNTER 2022-05-28 06:27 | Inpatient (IN) | payer OTHER, SELFPAY ==
[2022-05-28] MEDS: LACTATED RINGERS 1,000 ML 42 ML IV ×3 (07:00→09:36)
[2022-05-28 07:03] VITALS: BP 114/66
[2022-05-28 07:56] LABS: Add Manual Diff / Slide Review NO; Basophils Absolute Auto 0 /uL (0-100); Basophils Percent Auto 0.3 % (0-2); Eosinophils Absolute Auto 0 /uL (0-450); Eosinophils Percent Auto 0.6 % (2-4); Hematocrit 36.4 % (36-46); Hemoglobin 12.9 g/dL (12.0-16.0); Lymphocytes Absolute Auto 1700 /uL (1100-4500); Lymphocytes Percent Auto 20.9 % (25-40); Mean Corpuscular HGB Conc 35.5 % (30-36); Mean Corpuscular Hemoglobin 33.5 PG (26-34); Mean Corpuscular Volume 94.4 fL (80-100); Monocytes Absolute Auto 800 /uL (0-900); Monocytes Percent Auto 9.2 % (3-14); Neutrophils Absolute Auto 5700 /uL (1500-7000); Platelet Count 136 X10^3/uL (150-400); Red Blood Cell Count 3.85 X10^6/uL (4.0-5.2); Red Cell Distribution Width 13.8 % (11.6-14.8); White Blood Cell Count 8.3 X10^3/uL (4.5-11.0)
[2022-05-28] MEDS: ACETAMINOPHEN 325 MG TABLET 975 MG PO (08:08)
[2022-05-28] MEDS: CITRIC ACID/SODIUM CITRATE 15 ML SOLUTION 30 ML PO (08:08)
--- NOTE | 2022-05-28 08:17 | PM.PREOP ---
Pre-operative Note COVID-19 COVID-19 status: Not tested Criteria for continued procedure: Deterioration of the patient's condition or overall health Interval Note History & Physical reviewed/Exam performed by Physician: Yes Changes to H&P: No
--- NOTE | 2022-05-28 08:17 | PM.OBHP.1 ---
OB HPI Date/Time Date of admission: 05/28/22 Date Patient Seen: 05/28/22 Time Patient Seen: 08:17 History of Present Condition Chief complaint: Section : 2 Para: 1 Estimated Date of Delivery: 06/03/22 Estimated Gestational Age (weeks): 39 Narrative: Sheila Paz is a 31 year old female admitted for repeat Indications Operative indications ( section): previous uterine surgery History of Present care: good care Dating criteria: LMP confirmed by 1st trimester US Ultrasounds: normal mid trimester US Obstetrical complications: none Medical complications: none Preadmission Labs Blood type: A (-) negative -: Antibody screen: negative, GBS status: positive, HBsAG: negative, HIV: negative and RPR/VDLR: negative -: Chlamydia screen: not detected and Gonorrhea screen: not detected -: Rubella: immune and Varicella: immune HCAB: negative Cell-free DNA: Normal 1 hr GTT: 99 Evaluation Evaluation Baseline heart rate: 120 Variability: Moderate (11-25) monitor accelerations: Present Monitor Decelerations: Absent Category of Tracing: Reactive Status: Category l PFSH Medical History ADHD Hemorrhoids Pre-employment health screening examination Vitiligo Surgical History History of appendectomy S/P primary low transverse [place] teeth removed Family History Father Diabetes mellitus Mother Cancer Sister Healthy adult Grandfather Hx of CABG Grandmother Hypertension Grandfather Diabetes mellitus Hyperlipidemia Heart disease Myocardial infarction Grandmother Alzheimer disease Hypertension Social History marital status: number of children: 1 household members: spouse and children lives independently: Yes housing: house pets and animals: Yes (1 dog, aware of toxo) education level: master's degree 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 occupational exposures/hazards: Yes (infection risk) special kishore needs: No travel history: recent (domestic only) seatbelt use: always water heater temp set < 120 deg: Yes working smoke detector in home: Yes fire extinguisher in home: Yes carbon monox detector in home: Yes firearms in home: Yes firearms unloaded and locked: Yes do you feel safe at home: Yes Smoking Status: Never smoker second hand exposure: No alcohol intake: former (Rare, not while ) substance use type: does not use during the past year weight has: remained stable well-balanced diet: daily or most days daily servings fruits/ve-4 caffeine: No Type(s) of exercise: bicycling (stationary bike) frequency: 1-2 times per week Meds Home Medications and Allergies Home Medications Medication Instructions Recorded Confirmed Type prenat.vits,shane,toy-grlt-nyglg 1 tab PO DAILY 06/12/18 05/28/22 History Double Electric breast Pump and #1 ea 11/30/18 05/28/22 Rx Supplies doxylamine succinate 25 mg tablet 25 mg PO BEDTIME PRN Insomnia 10/08/21 05/28/22 History famotidine 20 mg tablet 20 mg BID 05/28/22 05/28/22 History magnesium glycinate 100 mg tablet 300 mg PO DAILY 05/28/22 05/28/22 History ondansetron 4 mg disintegrating 4 mg Q6HR 05/28/22 05/28/22 History tablet Allergies Allergy/AdvReac Type Severity Reaction Status Date / Time No Known Drug Allergies Allergy Verified 05/28/22 07:25 Review of Systems Review of Systems Narrative: No headaches, scotomata, epigastric pain. Good movement. No leakage of fluid. No fevers. OB Exam Vital signs Blood Pressure: 114/66 Pulse Rate: 76 Narrative Exam Narrative: HEENT exam within normal limits. Lungs are clear to auscultation percussion. Heart is regular rate and rhythm no S3-S4 murmurs. Abdomen is soft, nontender. Abdomen is gravid. Fetus is vertex. Extremities without edema and nontender. Objective Labs 05/28/22 07:21 Labs: Laboratory Results - last 24 hr 05/28/22 07:21 WBC 8.3 RBC 3.85 L Hgb 12.9 Hct 36.4 MCV 94.4 MCH 33.5 MCHC 35.5 RDW 13.8 Plt Count 136 L Neut % (Auto) 69.0 Lymph % (Auto) 20.9 L [place] % (Auto) 9.2 Eos % (Auto) 0.6 L Baso % (Auto) 0.3 Neut # (Auto) 5700 Lymph # (Auto) 1700 [place] # (Auto) 800 Eos # (Auto) 0 Baso # (Auto) 0 Assessment and Plan Assessment and Plan Assessment and Plan narrative: 39 week gestation with prior section for repeat low-transverse section
[2022-05-28 08:30] VITALS: BP 114/66; PULSE 76
[2022-05-28] MEDS: CEFAZOLIN 2 GM/100 ML PREMIX 100 ML IV (09:23)
--- NOTE | 2022-05-28 09:29 | SUR.OPER ---
Supine on Padded OR bed, head on pillow, safety belt at thigh, arms secured on padded arm boards at <90 degrees abduction. Bump under right buttock. Legs uncrossed with pillow under knees, gel pad to heels, tape over blanket to lower legs. Pt positioned per direction and supervision of Dr Sanders.
--- NOTE | 2022-05-28 09:40 | SUR.OPER ---
Viable baby boy delivered at 0939. Cord blood x2 and placenta given to OB RN.
[2022-05-28] MEDS: TRIAMCINOLONE 40 MG/ML VIAL IM (09:59)
[2022-05-28 10:25] VITALS: BP 109/62; PULSE 78; RESP 16; TEMP 37.1; O2SAT 100
--- NOTE | 2022-05-28 10:27 | PM.OBCS.1 ---
Operative Date/Time/Diagnoses Date of procedure: 05/28/22 Time of procedure: 10:28 Pre-op diagnosis: 39 week gestation with prior section Post-op diagnosis: same Procedure & Clinicians Procedure: Repeat low-transverse section Same procedure as scheduled: Yes Indications: 39 week gestation with prior section Surgeon: Vicenta Sanders Bar Turner: Jo Ann Clifton Anesthesia Type: Spinal Operative Notes Findings: Normal tubes, ovaries, uterus. Viable male infant with Apgars of 9 and 9 weighing 7 lb 10 oz. Closure Type: primary Specimen(s): cord blood Intraoperative meds administered: Duramorph, Ketorolac and Pitocin Applied: Catheter (Beltran) Estimated Blood Loss (mL): 600 Blood products transfused: none Procedure in detail: The patient was brought to the operating room where she underwent a spinal for anesthesia. She was placed in a supine position with a left lateral tilt. A Beltran catheter was placed. Pulsatile stockings were placed and functional throughout the case. 2 g of Ancef were given IV prior to the incision. Warming was in place. The patient was prepped and draped in usual sterile fashion. A low transverse incision was made with a scalpel removing the prior incision, and the incision was carried down to the fascial layer which was incised transversely with scissors. The furniture removalist's assistant did her side of the incision. The midline attachments are superiorly and inferiorly. Some bleeding was controlled Bovie. The rectus muscles were in the midline and the peritoneal incision was made with no damage to internal structures. The peritoneum was incised and superiorly and inferiorly. The incision was stretched with the surgeon and furniture removalist's assistant placing traction. Bladder blade was placed and a bladder flap was developed and the bladder held away from the lower uterine segment. An incision was made in the uterus with the scalpel and the incision was extended with stretching. The head was elevated out of the abdomen and with fundal pressure by the furniture removalist's assistant the baby was delivered. The was bulb suctioned for clear fluid and handed off to the warmer. Cord blood was collected. The placenta delivered spontaneously with traction. The uterus was cleaned with clean laps. The uterine incision was closed in 2 layers of 0 chromic suture the first a running locking layer the second an imbricating layer. The furniture removalist's assistant was helping to expose the incision. The bladder peritoneum was repaired with 2-0 Vicryl suture. The gutters were cleaned of any remaining fluids and ovaries and tubes were observed to be normal. Adequate hemostasis was noted. The perineum was closed with 2-0 Vicryl suture. The fascia layer was closed with 0 Vicryl suture with 2 stitches. The furniture removalist's assistant repairing half the incision with helping to retract and expose the incision for the other half. The incision was irrigated and adequate hemostasis noted. The incision was closed with interrupted 3-0 Vicryl sutures and then a subcuticular stitch of 4-0 Vicryl suture. Steri-Strips were placed. 40 mg of Kenalog in 10 cc of saline were injected in the subcuticular area of the incision to prevent keloid formation. The uterus was massaged to remove any clots. The patient went to recovery room in good condition. Counts of instruments and sponges were correct. Dr. Clifton was present throughout the case to assist with retraction, fundal pressure to deliver the infant, and suturing half the fascia. Complications: none [place] Baby 1: Gender: Male Presentation: vertex Position: Right Occiput Anterior Placental Delivery Description: Expressed Cord Vessel Description: 3 Vessels score (1 min): 9 score (5 min): 9 weight: 7 lb 10 oz Post-operative Condition: stable Disposition: other ( Center) Aftercare: routine postop
[2022-05-28 10:30] VITALS: BP 109/64; PULSE 74; RESP 16; O2SAT 100
[2022-05-28 10:35] VITALS: BP 100/63; PULSE 69; RESP 15; TEMP 36.9; O2SAT 100
[2022-05-28 10:45] VITALS: BP 109/64; PULSE 74; RESP 16; O2SAT 100
[2022-05-28] MEDS: ONDANSETRON 4 MG/2 ML INJ IV (12:08)
[2022-05-28] MEDS: diphenhydrAMINE 50 MG/ML VIAL 25 MG IV (12:33)
[2022-05-28] MEDS: KETOROLAC 30 MG/ML VIAL IV ×2 (15:58→22:15)
[2022-05-28] MEDS: ACETAMINOPHEN 325 MG TABLET 650 MG PO ×2 (15:59→22:16)
[2022-05-28] MEDS: LANOLIN OINT 7 GM 1 APPLIC TOP (18:42)
[2022-05-28] MEDS: FAMOTIDINE 20 MG TABLET PO (22:19)
[2022-05-28] MEDS: polyethylene glycoL 3350 17 GM POWD.PACK PO (22:22)
[2022-05-29 04:20] VITALS: TEMP 37
[2022-05-29] MEDS: KETOROLAC 30 MG/ML VIAL IV (04:20)
[2022-05-29] MEDS: ACETAMINOPHEN 325 MG TABLET 650 MG PO ×2 (04:24→10:27)
[2022-05-29 06:31] LABS: Add Manual Diff / Slide Review NO; Basophils Absolute Auto 0 /uL (0-100); Basophils Percent Auto 0.4 % (0-2); Eosinophils Absolute Auto 100 /uL (0-450); Eosinophils Percent Auto 0.8 % (2-4); Hematocrit 32.9 % (36-46); Hemoglobin 11.9 g/dL (12.0-16.0); Lymphocytes Absolute Auto 1900 /uL (1100-4500); Mean Corpuscular Hemoglobin 34.1 PG (26-34); Mean Corpuscular Volume 94.6 fL (80-100); Monocytes Absolute Auto 800 /uL (0-900); Monocytes Percent Auto 7.1 % (3-14); Neutrophils Absolute Auto 8400 /uL (1500-7000); Neutrophils Percent Auto 74.7 % (50-75); Platelet Count 127 X10^3/uL (150-400); Red Blood Cell Count 3.48 X10^6/uL (4.0-5.2); Red Cell Distribution Width 13.7 % (11.6-14.8); White Blood Cell Count 11.2 X10^3/uL (4.5-11.0)
--- NOTE | 2022-05-29 08:41 | PM.OBDS.1 ---
Discharge Providers Provider Date of admission: 05/28/22 06:27 Discharge Date: 05/29/22 Primary care physician: Sharon Kamara DO Consults: 05/28/22 10:49 Consult to Lead Application Architect Routine Comment: Discharge provider: Vicenta Sanders MD Summary Hospital Course Date Patient Seen: 05/29/22 Time Patient Seen: 08:42 Diagnoses: Repeat section Hospital Course: Patient arrived on Labor and delivery for repeat section at term. She delivered a viable male infant weighing 7 lb 10 oz. both baby and patient are doing well . She is having some issues with with nipple bleeding. She is ambulatory. Her pain is under control. She is passing gas. She is urinating without difficulty. Peripartum Data Delivery Method: Section Procedures: Repeat low-transverse section complications: none [place] 1: Gender: Male Disposition of : home Discharge Diagnosis (1) Status post repeat low transverse section: Status: Acute Status at Discharge Cognitive/behavioral status at discharge: oriented Functional status at discharge: independent ambulation Overall status at discharge: patient is progressing back to baseline Time Spent with Patient Time attestation: Total time spent providing and/or coordinating discharge services: Objective Labs 05/29/22 06:00 Labs: Laboratory Results - last 24 hr 05/29/22 05/29/22 06:00 06:00 WBC 11.2 H RBC 3.48 L Hgb 11.9 L Hct 32.9 L MCV 94.6 MCH 34.1 H MCHC 36.0 RDW 13.7 Plt Count 127 L Neut % (Auto) 74.7 Lymph % (Auto) 17.0 L [place] % (Auto) 7.1 Eos % (Auto) 0.8 L Baso % (Auto) 0.4 Neut # (Auto) 8400 H Lymph # (Auto) 1900 [place] # (Auto) 800 Eos # (Auto) 100 Baso # (Auto) 0 Maternal Bleed Negative Exam Vital Signs (past 8 hours): - 05/29/22 04:20 Temperature 98.6 F Oxygen Delivery Method Room Air Blood pressure 116/64, pulse 77 Narrative Exam Narrative: HEENT exam within normal limits. Abdomen is soft nontender. Uterus is firm, at U-1, nontender. Dressing is clean, dry, intact. Mild lochia. Extremities with trace edema and nontender. Discharge Plan Discharge Plan Patient Disposition: Home Discharge orders & Medications Prescriptions: New ibuprofen 800 mg tablet 800 mg PO Q6H PRN (Reason: pain) Qty: 30 0RF Continued prenat.vits,shane,huo-gryi-ojtdk tablet 1 tab PO DAILY doxylamine succinate 25 mg tablet 25 mg PO BEDTIME PRN (Reason: Insomnia) magnesium glycinate 100 mg Tablet 300 mg PO DAILY famotidine 20 mg Tablet 20 mg BID Discontinued ondansetron 4 mg tablet,disintegrating 4 mg Q6HR Patient Comments: DISSOLVE 1 TABLET ON THE TONGUE EVERY 6 TO 8 HOURS No Action (DME) Double Electric breast Pump and Supplies See Rx Instructions .ROUTE .MEDSUPPLY Qty: 1 0RF Rx Instructions: As directed for 99 months. Follow up/Referrals: Sharon Kamara DO [Primary Care Provider] - Vicenta Sanders MD [Physician] - 1 Week Diet/Activity/Treatments Diet: Regular Activity: Nothing in vagina for 6 weeks Skin/Wound/Dressing Care Report to your healthcare provider any signs of infection, such as:: chills, fever and increased pain Dressing: Leave dressing in place. It will be removed at one-week exam Discharge Data Primary Care Provider: Sharon Kamara
[2022-05-29] MEDS: IBUPROFEN 600 MG TABLET PO (10:28)
[2022-05-29] MEDS: DOCUSATE 100 MG CAPSULE PO (10:28)
[2022-05-29] MEDS: RHO(D) IMMUNE GLOBULIN 1,500 UNIT SYRINGE 1500 UNIT IM (13:44)
[2022-05-29 15:19] VITALS: BP 106/72; PULSE 79; RESP 16; TEMP 36.9
== END 2022-05-29 14:55 | disposition home or self-care (01) | DRG 788 ==
PROVIDERS: Specialist; Admitting Provider Obstetrics & Gynecology; PCP Family Medicine; Referring Provider Obstetrics & Gynecology; Visit Provider Obstetrics & Gynecology
PROC: 10D00Z1 Extraction of Products of Conception, Low, Open Approach (ICD-10-PCS; CPT 59514; principal; 2022-05-28 08:45)
DX: O34.211 Maternal care for low transverse scar from previous cesarean delivery (principal); Z3A.39 39 weeks gestation of pregnancy; Z37.0 Single live birth; Z20.822 Contact with and (suspected) exposure to COVID-19; O99.824 Streptococcus B carrier state complicating childbirth
CPT/HCPCS: 36415; 59050; 59510; 59514; 85025; 85461; A9270; J0690; J1200; J1885; J2274; J2405; J2790; J3010

== ENCOUNTER 2022-12-26 08:45 | Outpatient (RCR) | payer OTHER, SELFPAY ==
--- NOTE | 2022-12-12 14:33 | PT.OIE ---
Current Diagnoses Stiffness of unspecified hip, not elsewhere classified (12/12/22) Other specified disorders of muscle (12/12/22) Pelvic and perineal pain (12/12/22) Unspecified urinary incontinence (12/12/22) Past Medical History (Last Reviewed 05/23/22 @ 19:52 by Lashawn Mcmahon CNM, IESHA) ADHD Hemorrhoids Pre-employment health screening examination Vitiligo Past Surgical History (Last Reviewed 05/23/22 @ 19:52 by Lashawn Mcmahon CNM, IESHA) History of appendectomy S/P primary low transverse Sandy teeth removed Visit Care Team Role Provider Type Karen Isabel PA-C Attending Provider Advanced Refractory Products Supervisor Family Provider Primary Care Provider Referring Provider Specialty: Medical Address: [address] [place] [address], [facility] Email: [email or web address] Physical Therapy Initial Evaluation PT-OP-A Visit Information Start: 12/05/22 17:47 Freq: Status: Active Protocol: Document 12/12/22 08:51 LRN (Rec: 12/12/22 10:32 LRN [id number]) Out-Patient Physical Therapy Visit Information Visit Information Visit Type Initial Evaluation Visit Start Time 08:51 Visit Stop Time 09:34 Total Visit Minutes 43 Visit Number 1 Evaluation Information Evaluation Date 12/12/22 Precautions Precautions x 2 (2018, 2022) PT-OP-B Current Condition Start: 12/05/22 17:47 Freq: Status: Active Protocol: Document 12/12/22 08:51 LRN (Rec: 12/12/22 10:32 LRN [id number]) Current Condition History of Current Condition Onset Date 06/2018 Current Complaints Urinary leakage, pain with intercourse on insertion. History of Current Condition Pt is 6 months with some urinary leakage, not associated with urge or stress incontinence in standing. She reports her leakage is a few drops on her underwear with leakage worse while . She states this happened with her first & 2nd in 2018 & 2022 (05/28/22) . Both births were delivered by . She reports pain with sexual intercourse on insertion that has been present since 1st preganancy. With increased lubrication and slow progression it is not as painful. Condition worsened with 2nd , but now is baseline of first . 1st due to baby breach. For exercise she walks 2-3x/week 1-2 miles . She has not returned to same exercise routine that she did after her first (beachbody 3x/week, no leakage). Prior Treatments and Tests Kegels on own and hasn't noticed a difference. Treatment Goals Patient/Caregiver Goals Pt goal is to decrease pain with intercourse (insertion), eliminate urinary leakage. Pt agreeable to DC to HEP. 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 C- section x 2. PT-OP-I Pelvic Floor Start: 12/05/22 17:47 Freq: Status: Active Protocol: Document 12/12/22 08:51 LRN (Rec: 12/12/22 10:32 LRN [id number]) Pelvic Floor Assessment Urine Pelvic Floor Surgery No Leakage Size Small Other Leakage Causes few drops. Leaks Per Day ? Voiding Frequency 5x Nocturia ? Pads Used In 24 Hours None Bowel Bowel Symptoms Constipation Other Bowel Symptoms Using Miralax during and first 3-4 months after , now every day or every couple of days. Bowel Movement Frequency every other day or daily. [place] Stool Chart Type 1-7 1 [place] Stool Chart Comments Stool type 1-4 Pelvic Clock Pelvic Clock 12-3 Tenderness,Tightness Pelvic Clock 3-6 Tenderness,Tightness Pelvic Clock 6-9 Tenderness,Tightness Pelvic Clock 9-12 Tenderness,Tightness Pelvic Clock Other Tenderness and Tightness of PF externally at transverse perineum and adjacent areas. Perineal Descent Resting Absent Bearing Absent Contraction Ability Voluntary Contraction Moderate Voluntary Relaxation Absent Manual Muscle Testing Left 5 Manual Muscle Testing Right 1 Manual Muscle Testing Anterior 5 Manual Muscle Testing Posterior 5 Comments Pelvic Floor Comments No contraction noted with PF contraction. PT-OP-J Posture/Palpation/Skin Start: 12/05/22 17:47 Freq: Status: Active Protocol: Document 12/12/22 08:51 LRN (Rec: 12/12/22 10:32 LRN [id number]) Posture Evaluation Position Standing Head/C-Spine Posture Forward Head L-Spine Posture Increased Lordosis Pelvis Posture Neutral PT-OP-K Range of Motion Start: 12/05/22 17:47 Freq: Status: Active Protocol: Document 12/12/22 08:51 LRN (Rec: 12/12/22 10:32 LRN [id number]) Lumbar Spine Range of Motion Lumbar Spine Active Degrees Testing Position Standing Flexion 80 Extension 20 Rotation Left 45 Rotation Right 42 Lateral Flexion Left 22 Lateral Flexion Right 15 Comments Trunk AROM: Flexion is 80 deg ?s with 35 deg?s hip flexion, Trunk extension is 20 deg?s with 35 deg?s hip extension. Hip Goniometric Range of Motion Hip Right Passive Testing Position Supine Internal Rotation 25 External Rotation 55 Left Passive Testing Position Supine Internal Rotation 20 External Rotation 60 PT-OP-M Strength Start: 12/05/22 17:47 Freq: Status: Active Protocol: Document 12/12/22 08:51 LRN (Rec: 12/12/22 10:32 LRN [id number]) Trunk Strength Trunk Manual Muscle Testing Core Stabilization Pt demonstrated decreased core rotational stability during MMT of hips. Hip Strength Hip Manual Muscle Testing Right Flexion (L2) 5 Normal Extension (S1) 5 Normal Abduction 5 Normal Adduction 4+ Good+ External Rotation 5 Normal Internal Rotation 5 Normal Left Flexion (L2) 5 Normal Extension (S1) 5 Normal Abduction 5 Normal Adduction 5 Normal External Rotation 5 Normal Internal Rotation 4+ Good+ PT-OP-Q Treatments Start: 12/05/22 17:47 Freq: Status: Active Protocol: Document 12/12/22 08:51 LRN (Rec: 12/12/22 10:32 LRN [id number]) Therapeutic Exercises Supine Exercises Piriformis stretch Supine Exercise Name Ankle of knee and knee/ankle to opp shldr - I/S to do as HEP Side left Reps/Minutes 3' Comments phys & v cuing for positioning of ex and determining max tolerated stretch Self-Care/Home Management Treatment Education Patient Education Home Exercise Program Other Education Discussed results of evaluation, goals, and plan of care (POC). Pt agreeable to goals and POC. Pt educated in TrP treatment of soft tissue with visual training using hand as representing vaginal opening and a pen as wand to demonstrate self stretching of vaginal opening, progressing towards internal stretching. Activities Self-Care/Home Management Activities Pt issued and verbally reviewed with pt HEP: (2x/day or as often as possible) use of SM wand for PF stretching: outside of vaginal opening, progressing inward as tolerated. Pt I/S to start with 4 areas to stretch, increasing areas if tolerated. I/S pt in Piriformis stetch to be done as often as possible, at least a couple times a day . PT-OP-T Assessment and Plan Start: 12/05/22 17:47 Freq: Status: Active Protocol: Document 12/12/22 08:51 LRN (Rec: 12/12/22 10:32 LRN [id number]) Physical Therapy Assessment Rehab Potential Rehabilitation Potential Excellent Evaluation Complexity Number of Personal Factors/Comorbidities 1-2 Number of Body Systems Impaired 4 or More Clinical Presentation at Evaluation Evolving Impairments Impairments Activity Tolerance,Pain, Posture,ROM,Soft Tissue Mobility,Strength Other Impairments Core strength weakness: Obliques. Goals Three Impairment Occasional urinary leakage of a few drops. Impairment Tightness of PF (superficial ms of PF clock), hips (IR>ER, and core (abdomen). Short Term Goal (STG) Pt will be educated and able to demonstrate knowledge of mindfulness with relaxation of PF and proper deep breathing. STG Duration 01/10/23 Sound Tester Goal (LTG) Eliminate urinary leakage. LTG Duration 02/07/23 Two Impairment PF pain on insertion with sexual intercourse. Impairment Pain around PF clock of superficial ms and R Transverse perineum. Short Term Goal (STG) Pt educated in PF stretching with wand. STG Duration 12/20/22 Alf Goal (LTG) Pt will have no pain with initial insertion with intercourse. LTG Duration 02/07/23 One Impairment Pt lacks appropriate self care HEP Short Term Goal (STG) Pt educated in proper posture and changes with and genital and vulvar care. STG Duration 12/27/22 Alf Goal (LTG) Pt educated in self care HEP of LB/hip/PF stretches and core oblique strengthening. LTG Duration 02/07/23 Assessment Summary Assessment Pt is a 32 yo female who is 6 months post- who is experiencing mild urinary leakage and pain with sexual intercourse on insertion due to PF tightness. Pt presents with gapping of vaginal opening and many active trigger points around the PF clock of superficial ms and also externally on the R side of transverse perineum and adjacent areas. Pt has tightness of abdomen and hips bilaterally. Post- postural changes also may be affecting pt's ability to perform a PF contraction ( along with PF tightness) with no visible contraction noted externally. The pt will benefit from skilled physical therapy to work towards achieving the above stated goals. Physical Therapy Plan Frequency and Duration Frequency of Treatment 1x/Week Duration of treatment (weeks) 8 Plan of Care Start Date 12/12/22 Plan of Care End Date 02/07/23 Therapeutic Interventions Therapeutic Interventions Home Exercise Program,Joint Mobilizations,Manual Therapy, Neuromuscular Re-education, Patient/Caregiver Education, Self-Care/Home Management,Soft Tissue Mobilization, Therapeutic Activities, Therapeutic Exercises Modalities Biofeedback,Cold Pack/Ice Massage,Hot Packs Next Visit Focus/Plan Next Note Type Treatment Note Next Visit Plan Review and train pt in use of wand for PF stretching. Educate pt in proper genital and vulvar care, and postural changes during . Biofeedback if no improvement after a couple weeks. Manual: Check for sacral balance needs; stretch external PF (R transverse perineum and adjacent areas, superficial PF) to improve pt ability to perform a PF contraction, STM abdomen. Ex: Teach Deep breathing, mindfulness, HEP of PF (happy baby, child's pose, squats) stretches, hip (rotation, flex) and abdominal stretches, strengthening R hip AD/L hip IR, core rotation ex's. Modalities: Biofeed back, Hot or Cold packs as needed.
--- NOTE | 2022-12-12 14:33 | PT.OPPOC ---
Physical, Occupational & Speech Therapy At Current Diagnoses Stiffness of unspecified hip, not elsewhere classified (12/12/22) Other specified disorders of muscle (12/12/22) Pelvic and perineal pain (12/12/22) Unspecified urinary incontinence (12/12/22) Visit Care Team Role Provider Type Karen Isabel PA-C Attending Provider Advanced Lumber Sales Supervisor Family Provider Primary Care Provider Referring Provider Specialty: Medical Address: [address] [place] [address], [id number] Email: [email or web address] Plan Of Care PT-OP-T Assessment and Plan Start: 12/05/22 17:47 Freq: Status: Active Protocol: Document 12/12/22 08:51 LRN (Rec: 12/12/22 10:32 LRN [id number]) Physical Therapy Assessment Rehab Potential Rehabilitation Potential Excellent Evaluation Complexity Number of Personal Factors/Comorbidities 1-2 Number of Body Systems Impaired 4 or More Clinical Presentation at Evaluation Evolving Impairments Impairments Activity Tolerance,Pain, Posture,ROM,Soft Tissue Mobility,Strength Other Impairments Core strength weakness: Obliques. Goals Three Impairment Occasional urinary leakage of a few drops. Impairment Tightness of PF (superficial ms of PF clock), hips (IR>ER, and core (abdomen). Short Term Goal (STG) Pt will be educated and able to demonstrate knowledge of mindfulness with relaxation of PF and proper deep breathing. STG Duration 01/10/23 Jail Goal (LTG) Eliminate urinary leakage. LTG Duration 02/07/23 Two Impairment PF pain on insertion with sexual intercourse. Impairment Pain around PF clock of superficial ms and R Transverse perineum. Short Term Goal (STG) Pt educated in PF stretching with wand. STG Duration 12/20/22 Occupational Health Professional Goal (LTG) Pt will have no pain with initial insertion with intercourse. LTG Duration 02/07/23 One Impairment Pt lacks appropriate self care HEP Short Term Goal (STG) Pt educated in proper posture and changes with and genital and vulvar care. STG Duration 12/27/22 Occupational Health Professional Goal (LTG) Pt educated in self care HEP of LB/hip/PF stretches and core oblique strengthening. LTG Duration 02/07/23 Assessment Summary Assessment Pt is a 32 yo female who is 6 months post- who is experiencing mild urinary leakage and pain with sexual intercourse on insertion due to PF tightness. Pt presents with gapping of vaginal opening and many active trigger points around the PF clock of superficial ms and also externally on the R side of transverse perineum and adjacent areas. Pt has tightness of abdomen and hips bilaterally. Post- postural changes also may be affecting pt's ability to perform a PF contraction ( along with PF tightness) with no visible contraction noted externally. The pt will benefit from skilled physical therapy to work towards achieving the above stated goals. Physical Therapy Plan Frequency and Duration Frequency of Treatment 1x/Week Duration of treatment (weeks) 8 Plan of Care Start Date 12/12/22 Plan of Care End Date 02/07/23 Therapeutic Interventions Therapeutic Interventions Home Exercise Program,Joint Mobilizations,Manual Therapy, Neuromuscular Re-education, Patient/Caregiver Education, Self-Care/Home Management,Soft Tissue Mobilization, Therapeutic Activities, Therapeutic Exercises Modalities Biofeedback,Cold Pack/Ice Massage,Hot Packs Next Visit Focus/Plan Next Note Type Treatment Note Next Visit Plan Review and train pt in use of wand for PF stretching. Educate pt in proper genital and vulvar care, and postural changes during . Biofeedback if no improvement after a couple weeks. Manual: Check for sacral balance needs; stretch external PF (R transverse perineum and adjacent areas, superficial PF) to improve pt ability to perform a PF contraction, STM abdomen. Ex: Teach Deep breathing, mindfulness, HEP of PF (happy baby, child's pose, squats) stretches, hip (rotation, flex) and abdominal stretches, strengthening R hip AD/L hip IR, core rotation ex's. Modalities: Biofeed back, Hot or Cold packs as needed. Plan of Care Dates Plan of Care Start Date 12/12/22 Plan of Care End Date 02/07/23 Electronically Signed by: Lamar Mohan, PT 12/12/22 2111 If you are in agreement with this Plan of Care, please return a signed and dated copy. I have reviewed this Plan of Care and certify that the skilled therapy services above are required to meet the patient?s needs. Physician Signature Date Printed Name and Credentials Clinical Instructor Signature Printed Name and Credentials
--- NOTE | 2022-12-19 08:58 | PT.OTN ---
Current Diagnoses Stiffness of unspecified hip, not elsewhere classified (12/19/22) Other specified disorders of muscle (12/19/22) Pelvic and perineal pain (12/19/22) Unspecified urinary incontinence (12/19/22) Physical Therapy Treatment Note PT-OP-A Visit Information Start: 12/05/22 17:47 Freq: Status: Active Protocol: Document 12/19/22 08:05 LRN (Rec: 12/19/22 08:58 LRN [id number]) Out-Patient Physical Therapy Visit Information Visit Information Visit Type Treatment Note Visit Start Time 08:04 Visit Stop Time 08:47 Total Visit Minutes 43 Visit Number 2 Evaluation Information Evaluation Date 12/12/22 Precautions Precautions x 2 (2018, 2022) PT-OP-B Current Condition Start: 12/05/22 17:47 Freq: Status: Active Protocol: Document 12/12/22 08:51 LRN (Rec: 12/12/22 10:32 LRN [id number]) Current Condition History of Current Condition Onset Date 06/2018 Current Complaints Urinary leakage, pain with intercourse on insertion. History of Current Condition Pt is 6 months with some urinary leakage, not associated with urge or stress incontinence in standing. She reports her leakage is a few drops on her underwear with leakage worse while . She states this happened with her first & 2nd in 2018 & 2022 (05/28/22) . Both births were delivered by . She reports pain with sexual intercourse on insertion that has been present since 1st preganancy. With increased lubrication and slow progression it is not as painful. Condition worsened with 2nd , but now is baseline of first . 1st due to baby breach. For exercise she walks 2-3x/week 1-2 miles . She has not returned to same exercise routine that she did after her first (beachbody 3x/week, no leakage). Prior Treatments and Tests Kegels on own and hasn't noticed a difference. Treatment Goals Patient/Caregiver Goals Pt goal is to decrease pain with intercourse (insertion), eliminate urinary leakage. Pt agreeable to DC to HEP. 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 C- section x 2. PT-OP-C Subjective Start: 12/05/22 17:47 Freq: Status: Active Protocol: Document 12/19/22 08:05 LRN (Rec: 12/19/22 08:58 LRN [id number]) OP-PT Subjective Patient Comments Patient Comments States did not use the wand because wasn't sure what she was doing. PT-OP-I Pelvic Floor Start: 12/05/22 17:47 Freq: Status: Active Protocol: Document 12/12/22 08:51 LRN (Rec: 12/12/22 10:32 LRN [id number]) Pelvic Floor Assessment Urine Pelvic Floor Surgery No Leakage Size Small Other Leakage Causes few drops. Leaks Per Day ? Voiding Frequency 5x Nocturia ? Pads Used In 24 Hours None Bowel Bowel Symptoms Constipation Other Bowel Symptoms Using Miralax during and first 3-4 months after , now every day or every couple of days. Bowel Movement Frequency every other day or daily. [place] Stool Chart Type 1-7 1 [place] Stool Chart Comments Stool type 1-4 Pelvic Clock Pelvic Clock 12-3 Tenderness,Tightness Pelvic Clock 3-6 Tenderness,Tightness Pelvic Clock 6-9 Tenderness,Tightness Pelvic Clock 9-12 Tenderness,Tightness Pelvic Clock Other Tenderness and Tightness of PF externally at transverse perineum and adjacent areas. Perineal Descent Resting Absent Bearing Absent Contraction Ability Voluntary Contraction Moderate Voluntary Relaxation Absent Manual Muscle Testing Left 5 Manual Muscle Testing Right 1 Manual Muscle Testing Anterior 5 Manual Muscle Testing Posterior 5 Comments Pelvic Floor Comments No contraction noted with PF contraction. PT-OP-J Posture/Palpation/Skin Start: 12/05/22 17:47 Freq: Status: Active Protocol: Document 12/12/22 08:51 LRN (Rec: 12/12/22 10:32 LRN [id number]) Posture Evaluation Position Standing Head/C-Spine Posture Forward Head L-Spine Posture Increased Lordosis Pelvis Posture Neutral PT-OP-K Range of Motion Start: 12/05/22 17:47 Freq: Status: Active Protocol: Document 12/12/22 08:51 LRN (Rec: 12/12/22 10:32 LRN [id number]) Lumbar Spine Range of Motion Lumbar Spine Active Degrees Testing Position Standing Flexion 80 Extension 20 Rotation Left 45 Rotation Right 42 Lateral Flexion Left 22 Lateral Flexion Right 15 Comments Trunk AROM: Flexion is 80 deg ?s with 35 deg?s hip flexion, Trunk extension is 20 deg?s with 35 deg?s hip extension. Hip Goniometric Range of Motion Hip Right Passive Testing Position Supine Internal Rotation 25 External Rotation 55 Left Passive Testing Position Supine Internal Rotation 20 External Rotation 60 PT-OP-M Strength Start: 12/05/22 17:47 Freq: Status: Active Protocol: Document 12/12/22 08:51 LRN (Rec: 12/12/22 10:32 LRN [id number]) Trunk Strength Trunk Manual Muscle Testing Core Stabilization Pt demonstrated decreased core rotational stability during MMT of hips. Hip Strength Hip Manual Muscle Testing Right Flexion (L2) 5 Normal Extension (S1) 5 Normal Abduction 5 Normal Adduction 4+ Good+ External Rotation 5 Normal Internal Rotation 5 Normal Left Flexion (L2) 5 Normal Extension (S1) 5 Normal Abduction 5 Normal Adduction 5 Normal External Rotation 5 Normal Internal Rotation 4+ Good+ PT-OP-Q Treatments Start: 12/05/22 17:47 Freq: Status: Active Protocol: Document 12/19/22 08:05 LRN (Rec: 12/19/22 08:58 LRN [id number]) Therapeutic Exercises Supine Exercises Hip AD stretch Supine Exercise Name Hip AD stretch Side bilateral Reps/Minutes 10 SH x 1 each Comments R tighter than L and more tender at pubic bone Piriformis stretch Supine Exercise Name Ankle of knee and knee/ankle to opp shldr - I/S to do as HEP Side left Reps/Minutes 5' Comments phys & v cuing for mvmt thru stretch: deep breath, opp ankle DF, hip sm ER Sitting Exercises Piriformis stretch Sitting Exercise Name Piriformis stretch: knee to shldr & shldr to knee - training Side right Reps/Minutes 3' Manual Therapy Treatment Soft Tissue Mobilization PF Body Location Transverse Perineum Mobilization Type Sustained Pressure,Trigger Point Release Intensity/Depth Very superficial Body Position Hooklying Comments PT stretched R side with training given to pt, Pt stretched L side, Mirror used for visual feedback during training for stretch and pt used for self STM. Self-Care/Home Management Treatment Education Patient Education Home Exercise Program Other Education I/S pt in cleaning the wand after every use. Pt educated in proper genital and vulvar care with handout issued. Activities Self-Care/Home Management Activities Issued & reviewed HEP: Piriformis stretch and Lateral Hip stretch. PT-OP-T Assessment and Plan Start: 12/05/22 17:47 Freq: Status: Active Protocol: Document 12/19/22 08:05 LRN (Rec: 12/19/22 08:58 LRN [id number]) Physical Therapy Assessment Goals Three Impairment Occasional urinary leakage of a few drops. Impairment Tightness of PF (superficial ms of PF clock), hips (IR>ER, and core (abdomen). Short Term Goal (STG) Pt will be educated and able to demonstrate knowledge of mindfulness with relaxation of PF and proper deep breathing. 12/19/22: Pt demonstrated proper deep breathing ability. STG Duration 01/10/23 progressed 12/19/22 ( need ed in mindfulness with relaxation of PF) Snf Goal (LTG) Eliminate urinary leakage. LTG Duration 02/07/23 Two Impairment PF pain on insertion with sexual intercourse. Impairment Pain around PF clock of superficial ms and R Transverse perineum. Short Term Goal (STG) Pt educated in PF stretching with wand. 12/19/22: Pt educated in self PF stretching with wand with good response. STG Duration 12/20/22 (12/19/22: MET GOAL) Pump Runner Goal (LTG) Pt will have no pain with initial insertion with intercourse. LTG Duration 02/07/23 One Impairment Pt lacks appropriate self care HEP Short Term Goal (STG) Pt educated in proper posture and changes with and genital and vulvar care. 12/19/22: Pt educated in in proper genital and vulvar care . STG Duration 12/27/22 progressed 12/19/22 ( need educ in preg posture changes) Pump Runner Goal (LTG) Pt educated in self care HEP of LB/hip/PF stretches and core oblique strengthening. LTG Duration 02/07/23 Assessment Summary Assessment Pt is a 32 yo female who is 6 months post- who is experiencing mild urinary leakage and pain with sexual intercourse on insertion due to PF tightness. Reviewed and train pt in use of wand for PF stretching, with good understanding noted and pt achieving some pain relief. Physical Therapy Plan Frequency and Duration Frequency of Treatment 1x/Week Duration of treatment (weeks) 8 Plan of Care Start Date 12/12/22 Plan of Care End Date 02/07/23 Next Visit Focus/Plan Next Note Type Treatment Note Next Visit Plan Educate in postural changes during (STG 1) and in mindfulness with relaxation of PF (STG 3). Review hip stretches and ADD: hip flex stretch and abdominal stretches, Manual: Check for sacral balance needs; Biofeedback if no improvement after a couple weeks. Manual: stretch external PF (R transverse perineum and adjacent areas, superficial PF ) to improve pt ability to perform a PF contraction, STM abdomen. Ex: mindfulness, HEP of PF ( happy baby, child's pose, squats) stretches, strengthening R hip AD/L hip IR, core rotation ex's. Modalities: Biofeed back
--- NOTE | 2022-12-26 12:14 | PT.OTN ---
Current Diagnoses Stiffness of unspecified hip, not elsewhere classified (12/26/22) Other specified disorders of muscle (12/26/22) Pelvic and perineal pain (12/26/22) Unspecified urinary incontinence (12/26/22) Physical Therapy Treatment Note PT-OP-A Visit Information Start: 12/05/22 17:47 Freq: Status: Active Protocol: Document 12/26/22 08:47 LRN (Rec: 12/26/22 09:31 LRN [id number]) Out-Patient Physical Therapy Visit Information Visit Information Visit Type Treatment Note Visit Start Time 08:47 Visit Stop Time 09:25 Total Visit Minutes 38 Visit Number 3 Evaluation Information Evaluation Date 12/12/22 Precautions Precautions x 2 (2018, 2022) PT-OP-B Current Condition Start: 12/05/22 17:47 Freq: Status: Active Protocol: Document 12/12/22 08:51 LRN (Rec: 12/12/22 10:32 LRN [id number]) Current Condition History of Current Condition Onset Date 06/2018 Current Complaints Urinary leakage, pain with intercourse on insertion. History of Current Condition Pt is 6 months with some urinary leakage, not associated with urge or stress incontinence in standing. She reports her leakage is a few drops on her underwear with leakage worse while . She states this happened with her first & 2nd in 2018 & 2022 (05/28/22) . Both births were delivered by . She reports pain with sexual intercourse on insertion that has been present since 1st preganancy. With increased lubrication and slow progression it is not as painful. Condition worsened with 2nd , but now is baseline of first . 1st due to baby breach. For exercise she walks 2-3x/week 1-2 miles . She has not returned to same exercise routine that she did after her first (beachbody 3x/week, no leakage). Prior Treatments and Tests Kegels on own and hasn't noticed a difference. Treatment Goals Patient/Caregiver Goals Pt goal is to decrease pain with intercourse (insertion), eliminate urinary leakage. Pt agreeable to DC to HEP. 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 C- section x 2. PT-OP-C Subjective Start: 12/05/22 17:47 Freq: Status: Active Protocol: Document 12/26/22 08:47 LRN (Rec: 12/26/22 09:31 LRN [id number]) OP-PT Subjective Patient Comments Patient Comments Starting to feel better. Last time intimate with spouse, felt differeint and not feel as bad as before. Noticing less urinary leakage and for the first time felt leakage with crossing ankle over knee. Changing underwear more often. Patient Reported Progress Improving PT-OP-I Pelvic Floor Start: 12/05/22 17:47 Freq: Status: Active Protocol: Document 12/12/22 08:51 LRN (Rec: 12/12/22 10:32 LRN [id number]) Pelvic Floor Assessment Urine Pelvic Floor Surgery No Leakage Size Small Other Leakage Causes few drops. Leaks Per Day ? Voiding Frequency 5x Nocturia ? Pads Used In 24 Hours None Bowel Bowel Symptoms Constipation Other Bowel Symptoms Using Miralax during and first 3-4 months after , now every day or every couple of days. Bowel Movement Frequency every other day or daily. [place] Stool Chart Type 1-7 1 [place] Stool Chart Comments Stool type 1-4 Pelvic Clock Pelvic Clock 12-3 Tenderness,Tightness Pelvic Clock 3-6 Tenderness,Tightness Pelvic Clock 6-9 Tenderness,Tightness Pelvic Clock 9-12 Tenderness,Tightness Pelvic Clock Other Tenderness and Tightness of PF externally at transverse perineum and adjacent areas. Perineal Descent Resting Absent Bearing Absent Contraction Ability Voluntary Contraction Moderate Voluntary Relaxation Absent Manual Muscle Testing Left 5 Manual Muscle Testing Right 1 Manual Muscle Testing Anterior 5 Manual Muscle Testing Posterior 5 Comments Pelvic Floor Comments No contraction noted with PF contraction. PT-OP-J Posture/Palpation/Skin Start: 12/05/22 17:47 Freq: Status: Active Protocol: Document 12/12/22 08:51 LRN (Rec: 12/12/22 10:32 LRN [id number]) Posture Evaluation Position Standing Head/C-Spine Posture Forward Head L-Spine Posture Increased Lordosis Pelvis Posture Neutral PT-OP-K Range of Motion Start: 12/05/22 17:47 Freq: Status: Active Protocol: Document 12/12/22 08:51 LRN (Rec: 12/12/22 10:32 LRN [id number]) Lumbar Spine Range of Motion Lumbar Spine Active Degrees Testing Position Standing Flexion 80 Extension 20 Rotation Left 45 Rotation Right 42 Lateral Flexion Left 22 Lateral Flexion Right 15 Comments Trunk AROM: Flexion is 80 deg ?s with 35 deg?s hip flexion, Trunk extension is 20 deg?s with 35 deg?s hip extension. Hip Goniometric Range of Motion Hip Right Passive Testing Position Supine Internal Rotation 25 External Rotation 55 Left Passive Testing Position Supine Internal Rotation 20 External Rotation 60 PT-OP-M Strength Start: 12/05/22 17:47 Freq: Status: Active Protocol: Document 12/12/22 08:51 LRN (Rec: 12/12/22 10:32 LRN [id number]) Trunk Strength Trunk Manual Muscle Testing Core Stabilization Pt demonstrated decreased core rotational stability during MMT of hips. Hip Strength Hip Manual Muscle Testing Right Flexion (L2) 5 Normal Extension (S1) 5 Normal Abduction 5 Normal Adduction 4+ Good+ External Rotation 5 Normal Internal Rotation 5 Normal Left Flexion (L2) 5 Normal Extension (S1) 5 Normal Abduction 5 Normal Adduction 5 Normal External Rotation 5 Normal Internal Rotation 4+ Good+ PT-OP-Q Treatments Start: 12/05/22 17:47 Freq: Status: Active Protocol: Document 12/26/22 08:47 LRN (Rec: 12/26/22 09:31 LRN [id number]) Therapeutic Exercises Supine Exercises Hamstring/LE n glide Supine Exercise Name Hamstring/LE nerve glide Side bilateral Reps/Minutes 5' Comments phys & v cuing for mvmt thru stretch Lateral Hip stretch Supine Exercise Name Lateral Hip stretch Side bilateral Reps/Minutes 5' Comments phys & v cuing for mvmt thru stretch: deep breath, opp ankle DF, hip sm ER Hip AD stretch Supine Exercise Name Hip AD stretch Side bilateral Reps/Minutes 10 SH x 1 each Comments R tighter than L and more tender at pubic bone Piriformis stretch Supine Exercise Name Ankle of knee and knee/ankle to opp shldr - I/S to do as HEP Side left Reps/Minutes 5' Comments phys & v cuing for mvmt thru stretch Manual Therapy Treatment Soft Tissue Mobilization PF Body Location Transverse Perineum Mobilization Type Sustained Pressure,Trigger Point Release Intensity/Depth Very superficial Body Position Hooklying Comments PT stretched R side with training given to pt, Pt stretched L side, Mirror used for visual feedback during training for stretch and pt used for self STM. Self-Care/Home Management Treatment Education Other Education Educated pt in postural changes during . Activities Self-Care/Home Management Activities Issued & reviewed HEP: Hamstring/Sciatic nerve glide & HO for changes in posture with . PT-OP-T Assessment and Plan Start: 12/05/22 17:47 Freq: Status: Active Protocol: Document 12/26/22 08:47 LRN (Rec: 12/26/22 09:31 LRN [id number]) Physical Therapy Assessment Goals Three Impairment Occasional urinary leakage of a few drops. Impairment Tightness of PF (superficial ms of PF clock), hips (IR>ER, and core (abdomen). Short Term Goal (STG) Pt will be educated and able to demonstrate knowledge of mindfulness with relaxation of PF and proper deep breathing. 12/19/22: Pt demonstrated proper deep breathing ability. 12/26/22: [place] leakage once. STG Duration 01/10/23 progressed 12/26/22( need ed in mindfulness with relaxation of PF) Nutrition Therapist Goal (LTG) Eliminate urinary leakage. LTG Duration 02/07/23 Two Impairment PF pain on insertion with sexual intercourse. Impairment Pain around PF clock of superficial ms and R Transverse perineum. Short Term Goal (STG) Pt educated in PF stretching with wand. 12/19/22: Pt educated in self PF stretching with wand with good response. STG Duration 12/20/22 (12/19/22: MET GOAL) Nutrition Therapist Goal (LTG) Pt will have no pain with initial insertion with intercourse. 12/26/22: Reported less discomfort w/intercourse. LTG Duration 02/07/23 progressing One Impairment Pt lacks appropriate self care HEP Short Term Goal (STG) Pt educated in proper posture and changes with and genital and vulvar care. 12/19/22: Pt educated in in proper genital and vulvar care . 12/26/22: Pt Educated in postural changes during . STG Duration 12/27/22 (12/26/22: MET GOAL) Long-Term Goal (LTG) Pt educated in self care HEP of LB/hip/PF stretches and core oblique strengthening. 12/26/22: HEP previously issued: Piriformis, Lateral hip stretch. 12/26/22: HEP: Hamstring/LE neural stretch. LTG Duration 02/07/23 progressed 12/26/22 Assessment Summary Assessment + response to manual therapy with decrease in PF pain and hip (L>R) tightness with internal PF stretching. Pt needed review of HEP of hip stretches. Weak Quads making supine hamstring/LE neural glide for 60 secs difficult. Physical Therapy Plan Frequency and Duration Frequency of Treatment 1x/Week Duration of treatment (weeks) 8 Plan of Care Start Date 12/12/22 Plan of Care End Date 02/07/23 Next Visit Focus/Plan Next Note Type Treatment Note Next Visit Plan Add: mindfulness with relaxation of PF (STG 3). Review hip stretches again and ADD: Iliopsoas and abdominal stretches, Manual: Check for sacral balance needs; Biofeedback if no improvement after a couple weeks. Manual: stretch external PF (R transverse perineum and adjacent areas, superficial PF ) to improve pt ability to perform a PF contraction, STM abdomen. Ex: mindfulness, HEP of PF ( happy baby, child's pose, squats) stretches, strengthening R hip AD/L hip IR, core rotation ex's. Modalities: Biofeedback
--- NOTE | 2023-02-18 16:59 | PT-OP ANOTE ---
Per phone conversation the pt states she has been very busy at work, and sick kids; therefore not able to come in. 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 Pt agreeable to DC from PT
--- NOTE | 2023-02-18 17:03 | PT.OPDS ---
Current Diagnoses Stiffness of unspecified hip, not elsewhere classified (12/26/22) Other specified disorders of muscle (12/26/22) Pelvic and perineal pain (12/26/22) Unspecified urinary incontinence (12/26/22) Visit Care Team Role Provider Type Ayse Romero MD Primary Care Provider Physician Specialty: Family Practice Obstetrics Address: [address] [place] [address] Email: [email or web address] Karen Isabel PA-C Attending Provider Advanced Director Business Development Family Provider Referring Provider Specialty: Medical Address: [address] [place] [address], [address], [place], [address] Email: [email or web address] Visit Number Visit Number 3 Discharge Summary PT-OP-B Current Condition Start: 12/05/22 17:47 Freq: Status: Active Protocol: Document 12/12/22 08:51 LRN (Rec: 12/12/22 10:32 LRN [id number]) Current Condition History of Current Condition Onset Date 06/2018 Current Complaints Urinary leakage, pain with intercourse on insertion. History of Current Condition Pt is 6 months with some urinary leakage, not associated with urge or stress incontinence in standing. She reports her leakage is a few drops on her underwear with leakage worse while . She states this happened with her first & 2nd in 2018 & 2022 (05/28/22) . Both births were delivered by . She reports pain with sexual intercourse on insertion that has been present since 1st preganancy. With increased lubrication and slow progression it is not as painful. Condition worsened with 2nd , but now is baseline of first . 1st due to baby breach. For exercise she walks 2-3x/week 1-2 miles . She has not returned to same exercise routine that she did after her first (beachbody 3x/week, no leakage). Prior Treatments and Tests Kegels on own and hasn't noticed a difference. Treatment Goals Patient/Caregiver Goals Pt goal is to decrease pain with intercourse (insertion), eliminate urinary leakage. Pt agreeable to DC to HEP. 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 C- section x 2. PT-OP-C Subjective Start: 12/05/22 17:47 Freq: Status: Active Protocol: Document 12/26/22 08:47 LRN (Rec: 12/26/22 09:31 LRN [id number]) OP-PT Subjective Patient Comments Patient Comments Starting to feel better. Last time intimate with spouse, felt differeint and not feel as bad as before. Noticing less urinary leakage and for the first time felt leakage with crossing ankle over knee. Changing underwear more often. Patient Reported Progress Improving PT-OP-I Pelvic Floor Start: 12/05/22 17:47 Freq: Status: Active Protocol: Document 12/12/22 08:51 LRN (Rec: 12/12/22 10:32 LRN [id number]) Pelvic Floor Assessment Urine Pelvic Floor Surgery No Leakage Size Small Other Leakage Causes few drops. Leaks Per Day ? Voiding Frequency 5x Nocturia ? Pads Used In 24 Hours None Bowel Bowel Symptoms Constipation Other Bowel Symptoms Using Miralax during and first 3-4 months after , now every day or every couple of days. Bowel Movement Frequency every other day or daily. [place] Stool Chart Type 1-7 1 [place] Stool Chart Comments Stool type 1-4 Pelvic Clock Pelvic Clock 12-3 Tenderness,Tightness Pelvic Clock 3-6 Tenderness,Tightness Pelvic Clock 6-9 Tenderness,Tightness Pelvic Clock 9-12 Tenderness,Tightness Pelvic Clock Other Tenderness and Tightness of PF externally at transverse perineum and adjacent areas. Perineal Descent Resting Absent Bearing Absent Contraction Ability Voluntary Contraction Moderate Voluntary Relaxation Absent Manual Muscle Testing Left 5 Manual Muscle Testing Right 1 Manual Muscle Testing Anterior 5 Manual Muscle Testing Posterior 5 Comments Pelvic Floor Comments No contraction noted with PF contraction. PT-OP-J Posture/Palpation/Skin Start: 12/05/22 17:47 Freq: Status: Active Protocol: Document 12/12/22 08:51 LRN (Rec: 12/12/22 10:32 LRN [id number]) Posture Evaluation Position Standing Head/C-Spine Posture Forward Head L-Spine Posture Increased Lordosis Pelvis Posture Neutral PT-OP-K Range of Motion Start: 12/05/22 17:47 Freq: Status: Active Protocol: Document 12/12/22 08:51 LRN (Rec: 12/12/22 10:32 LRN [id number]) Lumbar Spine Range of Motion Lumbar Spine Active Degrees Testing Position Standing Flexion 80 Extension 20 Rotation Left 45 Rotation Right 42 Lateral Flexion Left 22 Lateral Flexion Right 15 Comments Trunk AROM: Flexion is 80 deg ?s with 35 deg?s hip flexion, Trunk extension is 20 deg?s with 35 deg?s hip extension. Hip Goniometric Range of Motion Hip Right Passive Testing Position Supine Internal Rotation 25 External Rotation 55 Left Passive Testing Position Supine Internal Rotation 20 External Rotation 60 PT-OP-M Strength Start: 12/05/22 17:47 Freq: Status: Active Protocol: Document 12/12/22 08:51 LRN (Rec: 12/12/22 10:32 LRN [id number]) Trunk Strength Trunk Manual Muscle Testing Core Stabilization Pt demonstrated decreased core rotational stability during MMT of hips. Hip Strength Hip Manual Muscle Testing Right Flexion (L2) 5 Normal Extension (S1) 5 Normal Abduction 5 Normal Adduction 4+ Good+ External Rotation 5 Normal Internal Rotation 5 Normal Left Flexion (L2) 5 Normal Extension (S1) 5 Normal Abduction 5 Normal Adduction 5 Normal External Rotation 5 Normal Internal Rotation 4+ Good+ PT-OP-T Assessment and Plan Start: 12/05/22 17:47 Freq: Status: Active Protocol: Document 02/18/23 17:01 LRN (Rec: 02/18/23 17:03 LRN [id number]) Physical Therapy Assessment Goals Three Impairment Occasional urinary leakage of a few drops. Impairment Tightness of PF (superficial ms of PF clock), hips (IR>ER, and core (abdomen). Short Term Goal (STG) Pt will be educated and able to demonstrate knowledge of mindfulness with relaxation of PF and proper deep breathing. 12/19/22: Pt demonstrated proper deep breathing ability. 12/26/22: [place] leakage once. STG Duration 01/10/23 progressed 12/26/22( need ed in mindfulness with relaxation of PF) Agronomy Location Manager Goal (LTG) Eliminate urinary leakage. LTG Duration 02/07/23 Two Impairment PF pain on insertion with sexual intercourse. Impairment Pain around PF clock of superficial ms and R Transverse perineum. Short Term Goal (STG) Pt educated in PF stretching with wand. 12/19/22: Pt educated in self PF stretching with wand with good response. STG Duration 12/20/22 (12/19/22: MET GOAL) Agronomy Location Manager Goal (LTG) Pt will have no pain with initial insertion with intercourse. 12/26/22: Reported less discomfort w/intercourse. LTG Duration 02/07/23 progressing One Impairment Pt lacks appropriate self care HEP Short Term Goal (STG) Pt educated in proper posture and changes with and genital and vulvar care. 12/19/22: Pt educated in in proper genital and vulvar care . 12/26/22: Pt Educated in postural changes during . STG Duration 12/27/22 (12/26/22: MET GOAL) Agronomy Location Manager Goal (LTG) Pt educated in self care HEP of LB/hip/PF stretches and core oblique strengthening. 12/26/22: HEP previously issued: Piriformis, Lateral hip stretch. 12/26/22: HEP: Hamstring/LE neural stretch. LTG Duration 02/07/23 progressed 12/26/22 Assessment Summary Assessment Per phone conversation the pt has been very busy at work, and with sick kids; therefore hasn't been able to come in. 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 Most goals were not met. Pt agreeable to DC from PT at this time. Physical Therapy Plan Discharge Physical Therapy Discharge Reasons Patient Request Discharge Comments The pt will seek a new referral in the new year when her schedule can allow her to be more consistent with physical therapy. Thank you for your referral.
== END 2023-02-24 14:05 | disposition home or self-care (01) ==
LOC: PHYS 08:45
PROVIDERS: Absent Provider Physician Assistant; Family Provider Physician Assistant; PCP Student in an Organized Health Care Education/Training Program; Referring Provider Physician Assistant; Visit Provider Physician Assistant
DX: R32 Unspecified urinary incontinence (principal); M62.89 Other specified disorders of muscle; R10.2 Pelvic and perineal pain; M25.659 Stiffness of unspecified hip, not elsewhere classified
CPT/HCPCS: 97110; 97140; 97162; 97535

== ENCOUNTER → 2024-06-10 08:49 | Outpatient (CLI) | payer OTHER, SELFPAY ==
[2024-06-10 09:18] LABS: Add Manual Diff / Slide Review NO; Basophils Absolute Auto 0 /uL (0-100); Basophils Percent Auto 0.8 % (0-2); Eosinophils Absolute Auto 0 /uL (0-450); Eosinophils Percent Auto 0.7 % (2-4); Hematocrit 41.8 % (36-46); Hemoglobin 14.4 g/dL (12.0-16.0); Lymphocytes Absolute Auto 2000 /uL (1100-4500); Lymphocytes Percent Auto 35.3 % (25-40); Mean Corpuscular HGB Conc 34.4 % (30-36); Mean Corpuscular Hemoglobin 31.6 PG (26-34); Mean Corpuscular Volume 92.1 fL (80-100); Monocytes Absolute Auto 300 /uL (0-900); Neutrophils Absolute Auto 3200 /uL (1500-7000); Neutrophils Percent Auto 57.2 % (50-75); Platelet Count 202 X10^3/uL (150-400); Red Blood Cell Count 4.54 X10^6/uL (4.0-5.2); Red Cell Distribution Width 12.9 % (11.6-14.8); White Blood Cell Count 5.6 X10^3/uL (4.5-11.0)
[2024-06-10 09:47] LABS: Alanine Aminotransferase 16 IU/L (<35); Albumin 4.1 g/dL (3.5-5.0); Albumin Globulin Ratio 1.5 (1.0-2.8); Alkaline Phosphatase 38 U/L (38-126); Aspartate Aminotransferase 23 IU/L (14-36); BUN Creatinine Ratio 22.6 (6-22); Bilirubin Total 0.7 mg/dL (0.2-1.3); Blood Urea Nitrogen 19 mg/dL (7-17); Calcium 9.1 mg/dL (8.4-10.2); Carbon Dioxide 24 mmol/L (22-32); Chloride 107 mmol/L (98-107); Estimated Glomerular Filt Rate > 60 mL/min (>60); Globulin 2.7 g/dL (1.7-4.1); Glucose 93 mg/dL (70-100); HEMOLYSIS < 15 (0-50); Potassium 4.8 mmol/L (3.4-5.1); Sodium 140 mmol/L (137-145); Total Protein 6.8 g/dL (6.3-8.2)
[2024-06-10 10:16] LABS: Thyroid Stimulating Hormone 1.58 uIU/mL (0.47-4.68)
[2024-06-10 10:19] LABS: Ferritin 35 ng/mL (6-137)
[2024-06-10 10:31] LABS: HEMOLYSIS < 15 (0-50); Iron 156 ug/dL (37-170)
[2024-06-10 10:42] LABS: Percent Iron Saturation 59 % (15-50); Total Iron Binding Capacity 265 ug/dL (265-497); Transferrin 211 mg/dL (206-381)
== END ==
PROVIDERS: Family Provider Physician Assistant; PCP Student in an Organized Health Care Education/Training Program; Referring Provider Student in an Organized Health Care Education/Training Program; Visit Provider Student in an Organized Health Care Education/Training Program
DX: R53.83 Other fatigue (principal)
CPT/HCPCS: 36415; 80053; 82728; 83540; 83550; 84443; 85025